=== PATIENT | male | born 1995 | race Caucasian/White ===

== ENCOUNTER 2020-04-30 09:13 | Outpatient (REF) | payer OTHER, SELFPAY ==
[2020-04-30 11:06] LABS: Alanine Aminotransferase 63 U/L (0-40); Albumin Level 4.7 g/dL (3.5-5.0); Alkaline Phosphatase 69 U/L (39-117); Anion Gap 12 (12-20); Aspartate Amino Transferase 52 U/L (5-37); Bilirubin Total 1.8 mg/dL (0.0-1.0); Blood Urea Nitrogen 17 mg/dL (9-16); Calcium 9.6 mg/dL (8.4-10.2); Carbon Dioxide 27 mmol/L (22-29); Chloride 104 mmol/L (96-108); Cholesterol 152 mg/dL; Estimated Glomerular Filt Rate > 60; Glucose Fasting 93 mg/dL (60-99); HDL Cholesterol 47 mg/dL; LDL Cholesterol Calculated 93 mg/dl; Potassium 4.2 mmol/L (3.3-5.1); Sodium 139 mmol/L (135-145); Total Protein 7.5 g/dL (6.5-8.0); Triglycerides 60 mg/dL
[2020-04-30 11:26] LABS: TSH reflex Free T4 1.13 uIU/mL (0.32-4.0)
[2020-04-30 11:28] LABS: HBc Num1 0.14 S/CO (0.00-0.79); HIV AB/AG Nonreactive (Nonreactive); HIV Num 1 0.11 S/CO (0.00-0.99); Hepatitis B Core Antibody Nonreactive (Nonreactive); ~HepC Num1 0.15 S/CO (0.00-0.79); ~Hepatitis C Antibody Nonreactive (Nonreactive)
[2020-04-30 11:39] LABS: HBS Num1 0.56 mIU/mL (0-7.99); HBsAGNum1 0.21 S/CO (0.00-0.99); Hepatitis B Surface Antigen Negative (Negative); ~Hepatitis B Surface Antibody NONREACTIVE (Nonreactive)
[2020-05-01 05:59] LABS: Syphilis Screen Nonreactive (Nonreactive)
[2020-05-01 09:57] LABS: C. trachomatis RNA TMA NOT DETECTED (NOT DETECTED); N. gonorrhoeae RNA TMA NOT DETECTED (NOT DETECTED)
== END 2020-04-30 09:14 | disposition home or self-care (01) ==
LOC: HO.WFDLDS 09:13
PROVIDERS: Visit Provider Family Medicine
DX: Z00.00 Encounter for general adult medical examination without abnormal findings (principal); Z11.3 Encounter for screening for infections with a predominantly sexual mode of transmission; Z11.8 Encounter for screening for other infectious and parasitic diseases; Z11.4 Encounter for screening for human immunodeficiency virus [HIV]; Z11.59 Encounter for screening for other viral diseases; Z13.29 Encounter for screening for other suspected endocrine disorder; Z13.220 Encounter for screening for lipoid disorders
CPT/HCPCS: 36415; 80053; 80061; 84443; 86704; 86706; 86780; 86803; 87340; 87389; 87491; 87591

== ENCOUNTER 2020-06-19 15:12 | Outpatient (REF) | payer OTHER, SELFPAY ==
[2020-06-19 16:54] LABS: Alanine Aminotransferase 29 U/L (0-40); Albumin Level 4.5 g/dL (3.5-5.0); Alkaline Phosphatase 66 U/L (39-117); Anion Gap 16 (12-20); Aspartate Amino Transferase 24 U/L (5-37); Bilirubin Total 2.2 mg/dL (0.0-1.0); Blood Urea Nitrogen 16 mg/dL (9-16); Calcium 9.5 mg/dL (8.4-10.2); Carbon Dioxide 24 mmol/L (22-29); Chloride 105 mmol/L (96-108); Estimated Glomerular Filt Rate > 60; Glucose Random 86 mg/dL (60-115); Potassium 4.3 mmol/L (3.3-5.1); Sodium 141 mmol/L (135-145); Total Protein 7.1 g/dL (6.5-8.0)
[2020-06-20 09:35] LABS: CT PCR NOT DETECTED (Not Detect.); NG PCR NOT DETECTED (Not Detect.)
== END 2020-06-19 15:13 | disposition home or self-care (01) ==
LOC: HO.HMGCLDS 15:12
PROVIDERS: PCP Family Medicine; Visit Provider Family Medicine
DX: Z11.3 Encounter for screening for infections with a predominantly sexual mode of transmission (principal); R74.01 Elevation of levels of liver transaminase levels
CPT/HCPCS: 80053; 87491; 87591

== ENCOUNTER 2020-10-08 11:17 | Outpatient (REF) | payer OTHER, SELFPAY ==
[2020-10-10 09:29] LABS: Lyme Abs Screen POSITIVE
[2020-10-16 15:40] LABS: 18 KD (IgG) Band NON-REACTIVE; 23 KD (IgG) Band NON-REACTIVE; 23 KD (IgM) Band REACTIVE; 28 KD (IgG) Band REACTIVE; 30 KD (IgG) Band NON-REACTIVE; 39 KD (IgM) Band NON-REACTIVE; 41 KD (IgM) Band NON-REACTIVE; 45 KD (IgG) Band NON-REACTIVE; 58 KD (IgG) Band REACTIVE; 66 KD (IgG) Band NON-REACTIVE; 93 KD (IgG) Band NON-REACTIVE; Lyme IgG Blot Interp NEGATIVE (NEGATIVE); Lyme IgM Blot Interp NEGATIVE (NEGATIVE)
== END 2020-10-08 11:18 | disposition home or self-care (01) ==
LOC: HO.WFDLDS 11:17
PROVIDERS: Visit Provider Family Medicine
DX: T14.8XXA Other injury of unspecified body region, initial encounter (principal); W57.XXXA Bitten or stung by nonvenomous insect and other nonvenomous arthropods, initial encounter
CPT/HCPCS: 36415; 86617; 86618

== ENCOUNTER 2021-04-01 14:54 | Outpatient (REF) | payer OTHER, SELFPAY ==
[2021-04-01 19:00] LABS: Influenza A PCR NEGATIVE (Negative); Influenza B PCR NEGATIVE (Negative); Resp Syncy Virus RNA Qual PCR NEGATIVE (Negative); SARS COV2 PCR INHOUSE POSITIVE (Negative)
== END 2021-04-01 14:55 | disposition home or self-care (01) ==
LOC: HO.LAB 14:54
PROVIDERS: Visit Provider Family Medicine
DX: Z20.822 Contact with and (suspected) exposure to COVID-19 (principal); B34.9 Viral infection, unspecified
CPT/HCPCS: 0241U

== ENCOUNTER 2023-05-12 13:01 | Outpatient (AMB) | payer OTHER, SELFPAY ==
--- NOTE | 2023-05-12 13:02 | A.OFFPC_ITS ---
Vital Signs 05/12/23 13:03 Height 5 ft 7 in Weight 193 lb BMI 30.2 BP 130/82 Blood Pressure Location Lt brachial Position Sitting Pulse 78 Pulse Source Pulse Oximeter Pulse Oximetry (%) 96 Oxygen Delivery Method Room Air Intake Visit Reasons: DEB from [facility] Allergies NSAIDS (Non-Steroidal Anti-Inflamma Allergy (Severe, Verified 05/12/23 13:23) chucky emre syndromes ibuprofen Allergy (Intermediate, Verified 05/12/23 13:23) Chucky Emre Syndrome Tobacco use date assessed: 05/12/23 Dental Screening Dental Screen Date: 05/12/23 Did you have a dental visit in the last 12 months?: Yes Did you have a dental problem in the last 6 months where you did not have access to dental care?: No Was dental information given to patient?: Patient has dentist HPI HPI Comments History of Present Illness Details 27-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, ADHD, Lyme disease, elevated LFTs Surgical history includes a left ACL repair x2 at [facility] Health maintenance: Due for flu vaccine Specialists: Orthopedics- none Family history: mom has thyroid disease grandfather with lung cancer > labs 09/2020 [facility] [place] Here today to discuss restarting ADHD meds 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 Only med trialed in the past. In regards to ADHD this helped sx greatly. Current sx include: easily distracted, effecting study habits. Was using marijuana in the past, stopped Using etoh 1-2 times per week. Socially. Denies any issue w/ drinking. requesting STD screening. denies any sx at current time [facility] Surgical History (Updated 05/12/23 @ 13:09 by Jessa Rene MA) History of repair of ACL Family History (Updated 05/12/23 @ 13:10 by Jessa Rene MA) Mother Non Hodgkin's lymphoma Maternal Grandfather Lung cancer Maternal Grandmother Skin cancer Social History (Updated 06/24/20 @ 08:48 by Yaquelin Vázquez CMA) Household Members Other:: Roommate Housing: House Alcohol intake: current Alcohol intake frequency: a few times a week Alcohol type: beer, wine and hard liquor Patient Tobacco Use Status: Never used Tobacco e-Cigarette/Vaping Use: Currently Using Cognitive needs: No Hearing needs: No Vision needs: Yes Questionnaire PHQ-9 Over the last 2 weeks, how often have you been bothered by any of the following problems? 1. Little interest or pleasure in doing things: not at all 2. Feeling down, depressed, or hopeless: not at all 3. Trouble falling or staying asleep, or sleeping too much: not at all 4. Feeling tired or having little energy: not at all 5. Poor appetite or overeating: not at all 6. Feeling bad about yourself - or that you are a failure or have let yourself or your family down: not at all 7. Trouble concentrating on things, such as reading the newspaper or watching television: not at all 8. Moving or speaking so slowly that other people could have noticed. Or the opposite - being so fidgety or restless that you have been moving around a lot more than usual: not at all 9. Thoughts that you would be better off or of hurting yourself in some way: not at all Total score: 0 Depression Screening Interpretation: Negative Depression Screening Done: Yes 58396 - PHQ-9 Billing: Yes Source: Developed by Drs. Francis Keane, Omayra Delatorre, Mart Barber and colleagues, with an educational jason from [employer]. Thrive Questionnaire Date Thrive assessed: 05/12/23 I am a: Patient What is your living situation today?: I have a steady place to live Within the past 12 months, did the food you bought not last and you didn't have the money to get more?: Never true Within the past 12 months, did you worry whether your food would run out before you got money to buy more?: Never true Do you have trouble paying for medicines?: No Do you have trouble getting transportation to medical appointments?: No Do you have trouble paying your heating and electricity bill?: No Do you have trouble taking care of your child, family member or friend?: No Do you have trouble with day-to-day activities such as bathing, preparing meals, shopping, managing finances, etc.?: No Are you currently unemployed and looking for a job?: No Are you interested in more education?: No Please select the resources that you would like help with: None THRIVE Score: 0 AUDIT C Alcohol Use Questionnaire (AUDIT-C) 1. How often do you have a drink containing alcohol?: 2-3 times a week 2. How many drinks containing alcohol do you have on a typical day when you are drinking?: 3 or 4 3. How often do you have six or more drinks on one occasion?: Less than monthly Total Score: 5 Score Reviewed/Action Taken: Yes ALDO-7 AMB Questionnaire ALDO-7 Date ALDO - 7 assessed: 05/12/23 Feeling nervous, anxious, or on edge: 0 = Not at all Not being able to stop or control worryin = Not at all Worrying too much about different things: 0 = Not at all Trouble relaxin = Not at all Being so restless that it is hard to sit still: 0 = Not at all Becoming easily annoyed or irritable: 0 = Not at all Feeling afraid as if something awful might happen: 0 = Not at all Total ALDO-7 score (0-4 normal; 5-9 mild; 10-14 moderate; 15-21 severe): 0 Source: Developed by Drs. Francis Keane, Omayra Delatorre, Mart Barber and colleagues, with an educational jason from [employer]. ALDO-7 Assessment Billing ALDO-7 Assessment Tool: ALDO-7 Assessment 18481 Review of Systems Const All systems reviewed & are unremarkable except as noted in HPI and below Physical exam (Primary Care) Vital Signs: Last Vital Signs Pulse 78 05/12/23 13:03 BP 130/82 05/12/23 13:03 Pulse Ox 96 05/12/23 13:03 Oxygen Delivery Method Room Air 05/12/23 13:03 BMI result Body Mass Index 30.2 Tobacco/Smoking Status: Tobacco use Status Tobacco use date assessed 05/12/23 05/12/23 13:12 Patient Tobacco Use Status Never used Tobacco 05/12/23 13:12 e-Cigarette/Vaping Use Currently Using 05/12/23 13:12 PHQ-9: PHQ-9 Score PHQ-9: Total score 0 05/12/23 13:38 Depression Screening Interpretation: Negative Thrive Assessment: Date of Thrive Assessment Date Thrive assessed 05/12/23 05/12/23 13:12 Const Other: awake alert cooperative MMM RRR LS CTAB Office Procedures Flu Questionnaire Does the patient have a severe egg allergy?: No Does the patient have severe life threatening allergies?: No Does the patient have a fever or illness today?: No Has the patient ever had Guillain-[place] Syndrome?: No Has the patient ever had any past reaction to a flu shot?: No Immunizations flu vacc [id number] 6mos up(PF) 60 mcg(15 mcgx4)/0.5 mL IM syringe Performing Provider: GILLIAN Kerns Performing Location: [facility] Administered by: Iza Mariee CMA on 05/12/23 13:39 Dose Route Admin Location Dispensed Lot Number Expiration Date NDC Rolled Materials Worker 0.5 mL IM Left Deltoid 0.5 mL [id number] 09/26/23 30577-912-13 [employer] VIS Given Date VIS Provided VIS Publication Date 05/12/23 Single Vaccine 20 Eligibility Eligibility Date Funding Source Not [facility] Eligible 05/12/23 Private Assessment and Plan Assessment & Plan (1) Screening for STDs (sexually transmitted diseases): Code(s): Z11.3 - Encounter for screening for infections with a predominantly sexual mode of transmission (2) ADHD: Comment: reviewed pediatric records. plan will be to check labs today and bring him back in 2 weeks to discuss and RX meds. Was on Concerta in past, worked well for ADHD but caused big decrease in appetite. Code(s): F90.9 - Attention-deficit hyperactivity disorder, unspecified type Qualifiers: Attention deficit-hyperactivity disorder type: predominantly inattentive Qualified Code(s): F90.0 - Attention-deficit hyperactivity disorder, predominantly inattentive type Plan This note is constructed using voice recognition software. While every effort has been made to ensure accuracy in library information technician, still errors may have been included Sometimes, these errors may affect the content or meaning of the given sentence . Total time spent caring for the patient today was 45 minutes. This includes time spent before the visit reviewing the chart, time spent during the visit, and time spent after the visit on documentation Orders: Orders Hepatitis B Surface Antigen Today Z11.3 - Encounter for screening for infections with a predominantly sexual mode of transmission Hepatitis C Antibody Today Z11.3 - Encounter for screening for infections with a predominantly sexual mode of transmission CT NG by PCR Today Z11.3 - Encounter for screening for infections with a predominantly sexual mode of transmission Microalbumin, Random (w Creat) Today F90.9 - Attention-deficit hyperactivity disorder, unspecified type, Z11.3 - Encounter for screening for infections with a predominantly sexual mode of transmission Comprehensive Met. Panel Today F90.9 - Attention-deficit hyperactivity disorder, unspecified type, Z11.3 - Encounter for screening for infections with a predominantly sexual mode of transmission LDL Cholesterol Direct Today F90.9 - Attention-deficit hyperactivity disorder, unspecified type, Z11.3 - Encounter for screening for infections with a predominantly sexual mode of transmission HIV Ab/Ag Today Z11.3 - Encounter for screening for infections with a predominantly sexual mode of transmission Syphilis Screen Today Z11.3 - Encounter for screening for infections with a predominantly sexual mode of transmission Herpes Simplex Virus Ab IgG Today Z11.3 - Encounter for screening for infections with a predominantly sexual mode of transmission TSH reflex Free T4 Today F90.9 - Attention-deficit hyperactivity disorder, unspecified type, Z11.3 - Encounter for screening for infections with a predominantly sexual mode of transmission Influenza [id number] Immunization Today Z23 - Encounter for immunization Coding Level of Care Code Est Pt Level 5 (76747) Diagnoses Screening for STDs (sexually transmitted diseases) Z11.3 Attention deficit hyperactivity disorder (ADHD), predominantly inattentive type F90.0 Attention deficit-hyperactivity disorder type: predominantly inattentive Additional Codes ALDO-7 Assessment Billing - ALDO-7 Assessment Tool: ALDO-7 Assessment 58365 ([id number])
[2023-05-12 13:03] VITALS: BP 130/82; PULSE 78; O2SAT 96; BMI 30.2
== END 2023-05-12 13:55 | disposition home or self-care (01) ==
PROVIDERS: PCP Family Medicine; Visit Provider Nurse Practitioner Family
DX: F90.0 Attention-deficit hyperactivity disorder, predominantly inattentive type (principal); Z11.3 Encounter for screening for infections with a predominantly sexual mode of transmission; Z23 Encounter for immunization
CPT/HCPCS: 90471; 90686; 99215

== ENCOUNTER 2023-05-13 08:08 | Outpatient (REF) | payer OTHER, SELFPAY ==
[2023-05-13 12:14] LABS: Alanine Aminotransferase 73 U/L (0-40); Albumin Level 4.4 g/dL (3.5-5.0); Alkaline Phosphatase 65 U/L (39-117); Anion Gap 9 (12-20); Aspartate Amino Transferase 31 U/L (5-37); Bilirubin Total 1.3 mg/dL (0.0-1.0); Blood Urea Nitrogen 16 mg/dL (9-16); Calcium 9.6 mg/dL (8.4-10.2); Carbon Dioxide 27 mmol/L (22-29); Chloride 108 mmol/L (96-108); Estimated Glomerular Filt Rate > 60; Glucose Random 92 mg/dL (60-115); Potassium 4.1 mmol/L (3.3-5.1); Sodium 140 mmol/L (135-145); Total Protein 7.4 g/dL (6.5-8.0)
[2023-05-13 12:16] LABS: TSH reflex Free T4 1.94 uIU/mL (0.32-4.0)
[2023-05-13 12:19] LABS: Microalbum/Creatinine Ratio Ur 21.1 ug/mg cr (<30)
[2023-05-13 12:34] LABS: HIV AB/AG Nonreactive (Nonreactive); HIV Num 1 0.07 S/CO (0.00-0.99); Hepatitis B Surface Antigen Negative (Negative); Syphilis Screen Nonreactive (Nonreactive); ~HepC Num1 0.11 S/CO (0.00-0.79); ~Hepatitis C Antibody Nonreactive (Nonreactive)
[2023-05-14 09:14] LABS: Herpes Simplex Type 2 IgG <0.90 index
[2023-05-14 13:48] LABS: LDL Cholesterol Direct 114 mg/dL (<100)
== END 2023-05-13 08:09 | disposition home or self-care (01) ==
LOC: HO.WFDLDS 08:08
PROVIDERS: Visit Provider Nurse Practitioner Family
DX: F90.9 Attention-deficit hyperactivity disorder, unspecified type (principal); Z11.3 Encounter for screening for infections with a predominantly sexual mode of transmission
CPT/HCPCS: 36415; 80053; 82043; 82570; 83721; 84443; 86695; 86696; 86780; 86803; 87340; 87389

== ENCOUNTER 2023-05-26 08:20 | Outpatient (AMB) | payer OTHER, SELFPAY ==
[2023-05-26 08:22] VITALS: BP 100/70; PULSE 64; RESP 13; TEMP 36.3; O2SAT 99; BMI 29.5
--- NOTE | 2023-05-26 08:22 | A.OFFPC_ITS ---
Vital Signs 05/26/23 08:22 Height 5 ft 7 in Weight 188 lb 8 oz BMI 29.5 BP 100/70 Blood Pressure Location Rt brachial Position Sitting Respiration 13 Pulse 64 Pulse Source Pulse Oximeter Temp 97.4 F Temp Source Temporal Artery Scan Pulse Oximetry (%) 99 Oxygen Delivery Method Room Air Intake Visit Reasons: CPE/lab fu/ADHD med start Food Mixer Required: No Accompanied by: Self / Same As Patient Allergies NSAIDS (Non-Steroidal Anti-Inflamma Allergy (Severe, Verified 05/26/23 08:26) chucky emre syndromes ibuprofen Allergy (Intermediate, Verified 05/26/23 08:26) Chucky Emre Syndrome Tobacco use date assessed: 05/12/23 Dental Screening Dental Screen Date: 05/26/23 Did you have a dental visit in the last 12 months?: No Did you have a dental problem in the last 6 months where you did not have access to dental care?: No Was dental information given to patient?: Patient has dentist HPI HPI Comments History of Present Illness Details 27-year-old male with Chucky Emre syn drome, ADHD, Lyme disease, elevated LFTs Surgical history includes a [facility]2 at [facility] Health maintenance: Specialists: Orthopedics Family history: mom has thyroid disease grandfather with lung cancer Here today to follow-up on his lab results and to discuss starting ADHD medications Lab results from 05/17/2023 with clinical significant value reviewed: Bilirubin elevated at 1.3, normal AST 31, elevated ALT 73 herpes simplex virus 1 IgA antibody elevated 29.9 In regards to the herpes simplex patient denies any current or past notable lesions orally or on his genitals. In regards to the elevated LFTs. He denies excessive use of Tylenol. Admits drinking but denies heavy use. He denies use of performance enhancing drugs, testosterone. He denies any abdominal pain, nausea, vomiting, abnormal stools or elimination patterns. In regards to his ADHD those symptoms continue to be present. 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 How often do you have a drink containing alcohol?: 2-3 times a week 2. How many drinks containing alcohol do you have on a typical day when you are drinking?: 5 or 6 3. How often do you have six or more drinks on one occasion?: Monthly Total Score: 7 ALDO-7 AMB Questionnaire ALDO-7 Date ALDO - 7 assessed: 05/12/23 Source: Developed by Drs. Francis Keane, Omayra Delatorre, Mart Barber and colleagues, with an educational jason from [employer]. Review of Systems Const All systems reviewed & are unremarkable except as noted in HPI and below Physical exam (Primary Care) Vital Signs: Last Vital Signs Temp 97.4 F 05/26/23 08:22 Pulse 64 05/26/23 08:22 Resp 13 05/26/23 08:22 BP 100/70 05/26/23 08:22 Pulse Ox 99 05/26/23 08:22 Oxygen Delivery Method Room Air 05/26/23 08:22 BMI result Body Mass Index 29.5 Tobacco/Smoking Status: Tobacco use Status Tobacco use date assessed 05/12/23 05/26/23 08:29 Patient Tobacco Use Status Never used Tobacco 05/26/23 08:29 e-Cigarette/Vaping Use Former Use 05/26/23 08:29 Thrive Assessment: Date of Thrive Assessment Date Thrive assessed 05/12/23 05/26/23 08:29 Const Other: awake alert cooperative Sclera is nonicteric bilat MMM RRR LS CTAB Abdomen soft, liver edge palpable, nontender Assessment and Plan Assessment & Plan (1) Elevated transaminase level: Comment: Hepatitis profile negative. We will check abdominal ultrasound complete to include elastography. We will discuss with patient's once results are available. 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 Safe sex encouraged. Code(s): B00.9 - Herpesviral infection, unspecified (3) ADHD: Comment: Was on Concerta in past, worked well for ADHD but caused big decrease in appetite. Given his abnormal liver enzymes the decision was made to hold off on starting any medications at this time. After the ultrasound of the abdomen is complete in the results were reviewed with him a discussion can be had about starting medications. Code(s): F90.9 - Attention-deficit hyperactivity disorder, unspecified type Qualifiers: Attention deficit-hyperactivity disorder type: predominantly inattentive Qualified Code(s): F90.0 - Attention-deficit hyperactivity disorder, predominantly inattentive type Plan: This note is constructed using voice recognition software. While every effort has been made to ensure accuracy in ct scan special procedures technologist, still errors may have been included Sometimes, these errors may affect the content or meaning of the given sentence . Total time spent caring for the patient today was 30 minutes. 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
== END 2023-05-26 08:53 | disposition home or self-care (01) ==
PROVIDERS: PCP Family Medicine; Visit Provider Nurse Practitioner Family
DX: R74.01 Elevation of levels of liver transaminase levels (principal); B00.9 Herpesviral infection, unspecified; F90.0 Attention-deficit hyperactivity disorder, predominantly inattentive type
CPT/HCPCS: 99214

== ENCOUNTER 2024-01-26 10:39 | Outpatient (AMB) | payer BC, SELFPAY ==
--- NOTE | 2024-01-26 08:12 | A.OFFPC_ITS ---
Vital Signs 01/26/24 10:43 Height 5 ft 7 in Weight 194 lb 2 oz BMI 30.4 BP 112/68 Blood Pressure Location Rt brachial Position Sitting Respiration 13 Pulse 59 Pulse Source Pulse Oximeter Pulse Oximetry (%) 98 Oxygen Delivery Method Room Air Intake Visit Reasons: ADHD med f/u Intake Note: follow up on meds Allergies NSAIDS (Non-Steroidal Anti-Inflamma Allergy (Severe, Verified 01/26/24 10:43) chucky emre syndromes ibuprofen Allergy (Intermediate, Verified 01/26/24 10:43) Chucky Emre Syndrome Medication List - Last Reconciled 01/26/24 by EDMOND Kerns- No Known Home Meds Tobacco use date assessed: 05/12/23 Dental Screening Dental Screen Date: 05/26/23 HPI HPI Comments History of Present Illness Details 28-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, ADHD, Lyme disease, elevated LFTs, HSV 1, obesity Surgical history includes a left ACL repair x2 at [facility] Family history: mom has thyroid disease grandfather with lung cancer Health maintenance: Flu 01/26/24 Specialists: Orthopedics Here today to discuss starting on medications to help his ADHD. We initially started this workup however he fell out of care. His initial workup did include findings of elevated LFTs and HSV 1. He was previously on Concerta however this caused decreased appetite and weight loss. He has not been on meds and sometimes. Overall his mood is stable. Sleep is disrupted as he was recently moved back in with his father. He was still working on getting his proposal development manager and needs to complete the final exam. In regards to abdominal symptoms he denies any abdominal pain, nausea, vomiting, changes in bowel habits. Reviews any use of supplements or elvo-czq-tcpzbil medications. Ultrasound of his liver was ordered with elastography however he did not complete this. He needs and accommodation letter for his testing. Paperwork presented to me today. Needs his flu shot Exam: awake alert cooperative Sclera is nonicteric bilat MMM RRR LS CTAB Abdomen soft, liver edge palpable, nontender Mood and affect appropriate Plan Letter written for him w/ the request for: extra time, alternate testing site such as private room if available limit distractions, recommend movement breaks every 30 minutes until testing complete. Paperwork completed and left at front end java developer for garbage pick up worker Repeat LFTS today Consider US if labs cont to be abnormal Plan to r/s Concerta after review of repeat labs. Contract reviewed and signed today. RTO 3-4 weeks to f/u on labs and meds. At the close of this note, no labs are resulted. I will review once in and prescribe Concerta if able. Patient is aware they are being prescribed a controlled substance. They were educated that this medication does require routine monthly office visits to monitor weight, blood pressure, heart rate and to screen for any signs of abuse or misuse. They were educated that they may be subject to random pill counts and/or U tox screenings. The prescription drug monitoring program we will be monitored at each visit to further screen for signs of abuse or misuse to include filling prescriptions at other physician's offices. The patient should maintain prescription refills of the same local pharmacy and advised the provider of any changes immediately. If at any time there is a concern for abuse or misuse or if there are any signs of side effects such as elevated blood pressure, elevated heart rate or weight loss patient is made aware that this medication will be discontinued. The patient is aware of the above and is willing to proceed. This note is constructed using voice recognition software. While every effort has been made to ensure accuracy in rotary rock drilling machine operator, still errors may have been included Sometimes, these errors may affect the content or meaning of the given sentence . Total time spent caring for the patient today was 30 minutes. This includes time spent before the visit reviewing the chart, time spent during the visit, and time spent after the visit on documentation [facility] Medical History History of COVID-19 Surgical History History of repair of ACL Family History Mother Non Hodgkin's lymphoma Maternal Grandfather Lung cancer Maternal Grandmother Skin cancer Other Mental health disorder Substance abuse Social History Household Members Other:: Roommate Housing: House Alcohol intake: current Alcohol intake frequency: a few times a week Alcohol type: beer, wine and hard liquor Patient Tobacco Use Status: Never used Tobacco e-Cigarette/Vaping Use: Former Use service: No Current occupational status: employed 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 Francis Keane, Omayra Delatorre, Mart Barber and colleagues, with an educational jason from [employer]. Physical exam (Primary Care) Vital Signs: Last Vital Signs Pulse 59 01/26/24 10:43 Resp 13 01/26/24 10:43 BP 112/68 01/26/24 10:43 Pulse Ox 98 01/26/24 10:43 Oxygen Delivery Method Room Air 01/26/24 10:43 BMI result Body Mass Index 30.4 Tobacco/Smoking Status: Tobacco use Status Tobacco use date assessed 05/12/23 01/26/24 08:12 Patient Tobacco Use Status Never used Tobacco 01/26/24 08:12 e-Cigarette/Vaping Use Former Use 01/26/24 08:12 Thrive Assessment: Date of Thrive Assessment Date Thrive assessed 05/12/23 01/26/24 08:12 Office Procedures Flu Questionnaire Does the patient have a severe egg allergy?: No Does the patient have severe life threatening allergies?: No Does the patient have a fever or illness today?: No Has the patient ever had Guillain-[place] Syndrome?: No Has the patient ever had any past reaction to a flu shot?: No Immunizations Fluarix Triv [id number] (PF) 45 mcg (15 mcg x 3)/0.5 mL IM syringe Performing Provider: ANGELA Kerns Performing Location: [facility] [place] [facility] Administered by: Angelina Muller RN on 01/26/24 11:27 Dose Route Admin Location Dispensed Lot Number Expiration Date [facility] Programming Development Project Manager 0.5 mL IM Left Deltoid 0.5 mL [id number] 09/25/24 [id number] [employer] VIS Given Date VIS Provided VIS Publication Date 01/26/24 Single Vaccine 20 Eligibility Eligibility Date Funding Source Not [facility] Eligible 01/26/24 Private Coding Level of Care Code Est Pt Level 4 (73565) Complex EM visit Add On G2211 Diagnoses Elevated transaminase level R74.01 Attention deficit hyperactivity disorder (ADHD), predominantly inattentive type F90.0 Attention deficit-hyperactivity disorder type: predominantly inattentive Assessment & Plan Assessment & Plan (1) Elevated transaminase level: Comment: Hepatitis profile negative. abdominal ultrasound complete to include elastography. Code(s): R74.01 - Elevation of levels of liver transaminase levels Category: Medical (2) ADHD: Comment: Was on Concerta in past, worked well for ADHD but caused big decrease in appetite. Code(s): F90.9 - Attention-deficit hyperactivity disorder, unspecified type Category: Medical Qualifiers: Attention deficit-hyperactivity disorder type: predominantly inattentive Qualified Code(s): F90.0 - Attention-deficit hyperactivity disorder, predominantly inattentive type Plan: . Plan . Orders: Orders Comprehensive Met. Panel Today R74.01 - Elevation of levels of liver transaminase levels Influenza [id number] Immunization Today Z23 - Encounter for immunization
[2024-01-26 10:43] VITALS: BP 112/68; PULSE 59; RESP 13; O2SAT 98; BMI 30.4
== END 2024-01-26 11:25 | disposition home or self-care (01) ==
LOC: HO.HMCFM 10:40
PROVIDERS: PCP Nurse Practitioner Family; Visit Provider Nurse Practitioner Family
DX: R74.01 Elevation of levels of liver transaminase levels (principal); F90.0 Attention-deficit hyperactivity disorder, predominantly inattentive type; Z23 Encounter for immunization

== ENCOUNTER → 2024-01-26 10:39 | Outpatient (BNVA) | payer BC, SELFPAY | PROVIDERS: PCP Nurse Practitioner Family; Visit Provider Nurse Practitioner Family | DX: R74.01 Elevation of levels of liver transaminase levels (principal); F90.0 Attention-deficit hyperactivity disorder, predominantly inattentive type; Z23 Encounter for immunization | CPT/HCPCS: 90471; 90656 ==

== ENCOUNTER 2024-01-26 11:30 | Outpatient (REF) | payer BC, SELFPAY ==
[2024-01-26 15:08] LABS: Albumin Level 4.4 g/dL (3.5-5.0); Alkaline Phosphatase 68 U/L (39-117); Anion Gap 13 (12-20); Aspartate Amino Transferase 35 U/L (5-37); Bilirubin Total 0.9 mg/dL (0.0-1.0); Blood Urea Nitrogen 16 mg/dL (9-16); Calcium 9.3 mg/dL (8.4-10.2); Carbon Dioxide 29 mmol/L (22-29); Chloride 106 mmol/L (96-108); Estimated Glomerular Filt Rate > 60; Glucose Random 93 mg/dL (60-115); Potassium 4.6 mmol/L (3.3-5.1); Sodium 143 mmol/L (135-145); Total Protein 7.6 g/dL (6.5-8.0)
[2024-01-26 15:19] LABS: Alanine Aminotransferase 56 U/L (0-40)
== END 2024-01-26 11:31 | disposition home or self-care (01) ==
LOC: HO.WFDLDS 11:30
PROVIDERS: Visit Provider Nurse Practitioner Family
DX: R74.01 Elevation of levels of liver transaminase levels (principal)
CPT/HCPCS: 36415; 80053

== ENCOUNTER 2024-02-16 09:33 | Outpatient (AMB) | payer BC, SELFPAY ==
--- NOTE | 2024-02-16 09:58 | A.OFFPC_ITS ---
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: No Allergies NSAIDS (Non-Steroidal Anti-Inflamma Allergy (Severe, Verified 02/16/24 10:20) chucky emre syndromes ibuprofen Allergy (Intermediate, Verified 02/16/24 10:20) Chucky Emre Syndrome Medication List - Last Reconciled 02/16/24 by ANGELA Kerns methylphenidate HCl ER 18 mg PO DAILY Tobacco use date assessed: 02/16/24 Dental Screening Dental Screen Date: 02/16/24 Did you have a dental visit in the last 12 months?: Yes Did you have a dental problem in the last 6 months where you did not have access to dental care?: No Was dental information given to patient?: Patient has dentist HPI HPI Comments History of Present Illness Details History of Present Illness The patient is a 28-year-old male presenting with ADHD. 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 He reports a significant improvement in focus, sustained energy levels, and task completion compared to periods when he does not take medication. However, the effects last approximately two to three hours before diminishing. The patient has experienced a similar impact on appetite as noted during adolescence, with a tendency to skip breakfast and lunch, resulting in weight fluctuations. Previous weights reported include 188 lb, 194 lb, and a current weight of 187 lb. Despite losing a few pounds, the patient is not concerned but acknowledges the importance of maintaining stable weight. No significant adverse events have been reported, with the patient denying symptoms of tachycardia or heightened anxiety. Discussion around medication dosing was initiated, attributing the short duration of effect possibly to inconsistent daily intake. Social History - Education: Currently studying for exam s, indicating recent academic engagement . Review of Systems - Nutrition: Tends to skip breakfast and lunch, mostly consuming dinner. Attempts to force eating due to past experiences with medication. - Weight Management: Recent weight fluct uations noted, but currently stable at 187 lb, which the patient finds acceptable. - Psychiatric: Denies racing heart, anxi ety. - General: Reports appetite fluctuations . Physical Exam Awake alert NAD RRR LS CTAB Mood and affect appropriate Patient was informed and verbally consented to the use of an ambient scribe for clinic note documentation during this visit. Discussion Notes I discussed with the patient the potential benefit of increasing the Concerta dosage to 36 mg to alleviate the issue of short-lived efficacy and reinforce the effects throughout the day. We reviewed the importance of observing for any increase in adverse effects with the higher dose. The likelihood of improved focus with consistent daily medication was also communicated. I reinforced monitoring weight and appetite closely, stressing the anorexic potential of stimulant medications. The patient expressed understanding and agreed with the proposed modifications. I advised notifying me if any side effects or concerns arise before the scheduled follow-up in four weeks. Patient Instructions - Increase Concerta dose to 36 mg once d aily as prescribed. Ok to take 2 of the 18mg. Pill count done today #17. New RX for 36 mg sent. - Monitor your appetite and weight, ensu ring regular meals. - Report any adverse effects or changes in symptoms. - Review progress at the next appointmen t in four weeks, or contact earlier if needed. Total time spent caring for the patient today was 20 minutes. This includes time spent before the visit reviewing the chart, time spent during the visit, and time spent after the visit on documentation REPLACED BY [facility] Medical History History of COVID-19 Surgical History History of repair of ACL Family History Mother Non Hodgkin's lymphoma Maternal Grandfather Lung cancer Maternal Grandmother Skin cancer Other Mental health disorder Substance abuse Social History Household Members Other:: Roommate Housing: House Alcohol intake: current Alcohol intake frequency: a few times a week Alcohol type: beer, wine and hard liquor Patient Tobacco Use Status: Never used Tobacco e-Cigarette/Vaping Use: Former Use service: No Current occupational status: employed 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 1. Little interest or pleasure in doing things: not at all 2. Feeling down, depressed, or hopeless: not at all 3. Trouble falling or staying asleep, or sleeping too much: not at all 4. Feeling tired or having little energy: not at all 5. Poor appetite or overeating: several days 6. Feeling bad about yourself - or that you are a failure or have let yourself or your family down: not at all 7. Trouble concentrating on things, such as reading the newspaper or watching television: not at all 8. Moving or speaking so slowly that other people could have noticed. Or the opposite - being so fidgety or restless that you have been moving around a lot more than usual: not at all 9. Thoughts that you would be better off or of hurting yourself in some way: not at all Total score: 1 56445 - PHQ-9 Billing: Yes Source: Developed by Drs. Francis Keane, Omayra Delatorre, Mart Barber and colleagues, with an educational jason from [employer]. Thrive Questionnaire Date Thrive assessed: 01/26/24 I am a: Patient What is your living situation today?: I have a steady place to live Within the past 12 months, did the food you bought not last and you didn't have the money to get more?: Never true Within the past 12 months, did you worry whether your food would run out before you got money to buy more?: Never true Do you have trouble paying for medicines?: No Do you have trouble getting transportation to medical appointments?: No Do you have trouble paying your heating and electricity bill?: No Do you have trouble taking care of your child, family member or friend?: No Do you have trouble with day-to-day activities such as bathing, preparing meals, shopping, managing finances, etc.?: No Are you currently unemployed and looking for a job?: No Are you interested in more education?: No Please select the resources that you would like help with: None Currently or been in a relationship where the following occur: No concerns reported THRIVE Score: 0 AUDIT C Alcohol Use Questionnaire (AUDIT-C) 1. How often do you have a drink containing alcohol?: 2-3 times a week 2. How many drinks containing alcohol do you have on a typical day when you are drinking?: 3 or 4 3. How often do you have six or more drinks on one occasion?: Less than monthly Total Score: 5 ALDO-7 AMB Questionnaire ALDO-7 Date ALDO - 7 assessed: 02/16/24 Feeling nervous, anxious, or on edge: 0 = Not at all Not being able to stop or control worryin = Not at all Worrying too much about different things: 1 = Several days Trouble relaxin = Not at all Being so restless that it is hard to sit still: 1 = Several days Becoming easily annoyed or irritable: 1 = Several days Feeling afraid as if something awful might happen: 0 = Not at all Total ALDO-7 score (0-4 normal; 5-9 mild; 10-14 moderate; 15-21 severe): 3 Source: Developed by Drs. Francis Keane, Omayra Delatorre, Mart Barber and colleagues, with an educational jason from [employer]. ALDO-7 Assessment Billing ALDO-7 Assessment Tool: ALDO-7 Assessment 24707 Physical exam (Primary Care) Vital Signs: Last Vital Signs Temp 98.1 F 02/16/24 10:04 Pulse 122 H 02/16/24 10:04 Resp 16 02/16/24 10:04 BP 112/65 02/16/24 10:04 Pulse Ox 97 02/16/24 10:04 Oxygen Delivery Method Room Air 02/16/24 10:04 BMI result Body Mass Index 29.3 Tobacco/Smoking Status: Tobacco use Status Tobacco use date assessed 02/16/24 02/16/24 10:06 Patient Tobacco Use Status Never used Tobacco 02/16/24 10:00 e-Cigarette/Vaping Use Former Use 02/16/24 10:00 PHQ-9: PHQ-9 Score PHQ-9: Total score 1 02/16/24 10:26 Thrive Assessment: Date of Thrive Assessment Date Thrive assessed 01/26/24 02/16/24 10:00 Currently or been in a relationship where the following occur: No concerns reported Coding Level of Care Code Est Pt Level 3 (23837) Complex EM visit Add On G2211 Diagnoses Attention deficit hyperactivity disorder (ADHD), predominantly inattentive type F90.0 Attention deficit-hyperactivity disorder type: predominantly inattentive Additional Codes ALDO-7 Assessment Billing - ALDO-7 Assessment Tool: ALDO-7 Assessment 21985 ([id number]) PHQ-9 - 39662 - PHQ-9 Billing: Yes ([id number]) Assessment & Plan Assessment & Plan (1) ADHD: Comment: Was on Concerta in past, worked well for ADHD but caused big decrease in appetite. Code(s): F90.9 - Attention-deficit hyperactivity disorder, unspecified type Category: Medical Qualifiers: Attention deficit-hyperactivity disorder type: predominantly inattentive Qualified Code(s): F90.0 - Attention-deficit hyperactivity disorder, predominantly inattentive type Plan: . Plan . Medications: New methylphenidate HCl ER Partial Fill upon patient request. 36 mg PO DAILY 30 tabs 0RF Discontinued methylphenidate HCl ER Partial Fill upon patient request. Discontinued Reason: Doctor's Order 18 mg PO DAILY 30 tabs 0RF
[2024-02-16 10:04] VITALS: BP 112/65; PULSE 122; RESP 16; TEMP 36.7; O2SAT 97; BMI 29.3
== END 2024-02-16 10:26 | disposition home or self-care (01) ==
PROVIDERS: PCP Nurse Practitioner Family; Visit Provider Nurse Practitioner Family
DX: F90.0 Attention-deficit hyperactivity disorder, predominantly inattentive type (principal)

== ENCOUNTER → 2024-02-16 09:33 | Outpatient (BNVA) | payer BC, SELFPAY | PROVIDERS: PCP Nurse Practitioner Family; Visit Provider Nurse Practitioner Family | DX: F90.0 Attention-deficit hyperactivity disorder, predominantly inattentive type (principal) | CPT/HCPCS: 96127 ==

== ENCOUNTER 2024-03-27 09:45 | Outpatient (AMB) | payer BC, SELFPAY ==
--- NOTE | 2024-03-27 09:58 | MHC.PC.OV ---
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: No Allergies NSAIDS (Non-Steroidal Anti-Inflamma Allergy (Severe, Verified 03/27/24 10:14) chucky emre syndromes ibuprofen Allergy (Intermediate, Verified 03/27/24 10:14) Chucky Emre Syndrome Medication List - Last Reconciled 03/27/24 by Ginger Bravo, INTELLIGENCE OFFICER BASIC- methylphenidate HCl ER 36 mg PO DAILY Tobacco use date assessed: 02/16/24 Dental Screening Dental Screen Date: 02/16/24 HPI HPI Comments History of Present Illness Details 28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 He is currently prescribed Concerta 36 mg, which was increased from a prior dosage during his last visit. The patient had a surgical procedure for an anterior cruciate ligament (ACL) and meniscus tear on March 06. Prior to surgery, he ceased taking his ADHD medication due to concerns about its interaction with postoperative medication. Post-surgery, he did not resume taking Concerta as he wanted to evaluate his recovery progress before restarting. He has been off all pain medications, including oxycodone and Tylenol, post-surgery. He found the 36 mg dose effective in helping maintain focus over extended periods when he was on it. Weight monitoring with noted reduction from 188 lbs to 184 lbs, accounted for due to recent surgery. - Activity Level: Recently progressed to walking without crutches. - Nutrition: Reported increased appetite and frequent ordering of food since recovering from surgery. Review of Systems - General: Denies anxiety. Cards: denies palpitations - Mood: Reports mild sleeplessness attributed to irregular sleep post-surgery recovery. Results: Pill count today #19 filled 02/16/24 Physical Exam Awake alert NAD RRR LS CTAB Mood and affect appropriate Plan - Prescribe Concerta 36 mg with the anticipated refill date of April 12, ensuring adequate supply - Monitor your appetite and weight, ensuring regular meals. - Arrange for a follow-up appointment to continue monitoring ADHD medication effectiveness and adjust if necessary. - Schedule next visit in April for annual physical including medication review. Patient was informed and verbally consented to the use of an ambient scribe for clinic note documentation during this visit. RTO Apr CPE/Med check, sooner PRN This note is constructed using voice recognition software. While every effort has been made to ensure accuracy in hand ii thermal cutter, still errors may have been included Sometimes, these errors may affect the content or meaning of the given sentence . Total time spent caring for the patient today was 30 minutes. This includes time spent before the visit reviewing the chart, time spent during the visit, and time spent after the visit on documentation [facility] Medical History History of COVID-19 Surgical History History of repair of ACL Family History Mother Non Hodgkin's lymphoma Maternal Grandfather Lung cancer Maternal Grandmother Skin cancer Other Mental health disorder Substance abuse Social History Household Members Other:: Roommate Housing: House Alcohol intake: current Alcohol intake frequency: a few times a week Alcohol type: beer, wine and hard liquor Patient Tobacco Use Status: Never used Tobacco e-Cigarette/Vaping Use: Former Use service: No Current occupational status: employed 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 13159 - PHQ-9 Billing: Patient declined-do not bill Source: Developed by Drs. Francis Keane, Omayra Delatorre, Mart Barber and colleagues, with an educational jason from [employer]. Thrive Questionnaire Date Thrive assessed: 03/27/24 I am a: Patient What is your living situation today?: I have a steady place to live Within the past 12 months, did the food you bought not last and you didn't have the money to get more?: Never true Within the past 12 months, did you worry whether your food would run out before you got money to buy more?: Never true Do you have trouble paying for medicines?: No Do you have trouble getting transportation to medical appointments?: No Do you have trouble paying your heating and electricity bill?: No Do you have trouble taking care of your child, family member or friend?: No Do you have trouble with day-to-day activities such as bathing, preparing meals, shopping, managing finances, etc.?: No Are you currently unemployed and looking for a job?: No Are you interested in more education?: No Please select the resources that you would like help with: None Currently or been in a relationship where the following occur: No concerns reported THRIVE Score: 0 ALDO-7 AMB Questionnaire ALDO-7 Date ALDO - 7 assessed: 02/16/24 Source: Developed by Drs. Francis Keane, Omayra Delatorre, Mart Barber and colleagues, with an educational jason from [employer]. Physical exam (Primary Care) Vital Signs: Last Vital Signs Pulse 72 03/27/24 10:02 Resp 13 03/27/24 10:02 BP 122/72 03/27/24 10:02 Pulse Ox 98 03/27/24 10:02 Oxygen Delivery Method Room Air 03/27/24 10:02 BMI result Body Mass Index 28.9 Tobacco/Smoking Status: Tobacco use Status Tobacco use date assessed 02/16/24 03/27/24 10:03 Patient Tobacco Use Status Never used Tobacco 03/27/24 10:03 e-Cigarette/Vaping Use Former Use 03/27/24 10:03 Thrive Assessment: Date of Thrive Assessment Date Thrive assessed 03/27/24 03/27/24 10:03 Currently or been in a relationship where the following occur: No concerns reported Coding Level of Care Code Est Pt Level 4 (88087) Complex EM visit Add On G2211 Diagnoses Attention deficit hyperactivity disorder (ADHD), predominantly inattentive type F90.0 Attention deficit-hyperactivity disorder type: predominantly inattentive History of repair of anterior cruciate ligament of left knee Z98.890 Assessment & Plan Assessment & Plan (1) ADHD: Comment: Was on Concerta in past, worked well for ADHD but caused big decrease in appetite. Code(s): F90.9 - Attention-deficit hyperactivity disorder, unspecified type Category: Medical Qualifiers: Attention deficit-hyperactivity disorder type: predominantly inattentive Qualified Code(s): F90.0 - Attention-deficit hyperactivity disorder, predominantly inattentive type (2) History of repair of anterior cruciate ligament of left knee: Code(s): Z98.890 - Other specified postprocedural states Category: Medical Plan . Medications: Refilled methylphenidate HCl ER Partial Fill upon patient request. 36 mg PO DAILY 30 tabs 0RF
[2024-03-27 10:02] VITALS: BP 122/72; PULSE 72; RESP 13; O2SAT 98; BMI 28.9
== END 2024-03-27 10:23 | disposition home or self-care (01) ==
PROVIDERS: PCP Nurse Practitioner Family; Visit Provider Nurse Practitioner Family
DX: F90.0 Attention-deficit hyperactivity disorder, predominantly inattentive type (principal); Z98.890 Other specified postprocedural states

== ENCOUNTER 2024-05-10 10:39 | Outpatient (AMB) | payer BC, SELFPAY ==
--- NOTE | 2024-05-10 10:41 | A.OFFPC_ITS ---
Vital Signs 05/10/24 10:43 Height 5 ft 7 in Weight 186 lb BMI 29.1 BP 118/72 Blood Pressure Location Lt brachial Position Sitting Pulse 68 Pulse Source Pulse Oximeter Temp 98.2 F Temp Source Oral Pulse Oximetry (%) 98 Oxygen Delivery Method Room Air Intake Visit Reasons: CPE/Med check Intake Note: pt is here for PE Allergies NSAIDS (Non-Steroidal Anti-Inflamma Allergy (Severe, Verified 05/10/24 10:57) chucky emre syndromes ibuprofen Allergy (Intermediate, Verified 05/10/24 10:57) Chucky Emre Syndrome Medication List - Last Reconciled 05/10/24 by Ginger Bravo, [facility]- methylphenidate HCl ER 36 mg PO DAILY Tobacco use date assessed: 05/10/24 Dental Screening Dental Screen Date: 05/10/24 Did you have a dental visit in the last 12 months?: Yes Did you have a dental problem in the last 6 months where you did not have access to dental care?: No Was dental information given to patient?: Patient has dentist HPI HPI Comments History of Present Illness Details 28-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 ca (age 64) Health maintenance: Flu 01/26/24 Td 2017 Specialists: Orthopedics Here today for CPE s/p L ACL tear, still in PT, still out of work, out of brace. Managing ADHD well controlled on Concerta. Appetite and wt stable. Mood stable. Sleeping well. Med count today #19 filled 04/27/24 - Last flu shot administered in December 2023 - Tetanus booster received in 2017; up-t o-date for 10-year vaccination schedule - Discussion about getting labs drawn fo r liver profile and cholesterol - Review of vision status; no corrective lenses in use due to personal comfort despite recommendations - Discussion of potential for future pro state screening due to family history Social History - Education: Currently studying and prep aring for an upcoming test by the end of May - Family: Lives with father; no issues w ith family planning mentioned - Exercise: Currently undergoing physica l therapy; not back to work yet after ACL surgery - Medication Use: Adheres consistently t o ADHD medication regimen - Sleep: Routine affected by social acti vities; recent night without sleep due to remi - Nutrition: Consumes approximately two meals per day; appetite stable Physical Exam General: Well developed, well nourished, in no acute distress. Appears stated age. Head: Normocephalic, atraumatic. Eyes: Pupils are equal, round and reactive to light and accommodation. Conjunctivae are clear. Vision grossly normal. Ears: TMs clear AU, EACS WNL Nose: Patent, without discharge. Neck: Supple, no adenopathy or thyromegaly. Lungs: Clear to auscultation bilaterally. No rales, rhonchi or wheeze noted. Good air flow in all villegas. Heart: Regular rate and rhythm. No murmurs, click, rubs or gallops are noted. : Deferred. Reviewed HAY Pulses: Peripheral pulses are equal and palpable bilaterally. Extremities: No clubbing, cyanosis nor edema is noted. Significant calluses to pads on the feet. Neurologic: Gait and station normal. Cranial Nerves 2-12 intact. Motor strength grossly symmetrical and intact. No sensory loss. Balance normal. Skin: No rashes, ulcers, or lesions noted. Turgor is good. Skin color is good. Hair and nails are without abnormalities. Psych: Normal eye contact, affect and mood appropriate, and normal interactions. Patient is alert and appropriate to context. Depression scale is negative. Results - Labs: Elevated liver enzyme from er 2023 and mild elevated LDL Discussion Notes During the visit, I discussed the current status of the patient's ADHD medication regimen and confirmed stability and adherence with methylphenidate ER 36 mg daily. I reviewed family history with the patient, noting maternal thyroid disease and grandfather's lung cancer, which may place him at increased risk for similar conditions. We discussed the current callus formation on the feet and the potential need for better management to prevent complications. Identified areas for health maintenance included verifying the most recent flu vaccination in 2023 and that tetanus immunization is up-to-date as of 2017. I addressed the concerns about liver health and cholesterol, agreeing to obtain a lipid panel and liver function tests today to ensure these parameters remain stable. Additionally, I provided reassurance regarding his father's prostate screening and explained his risk given his age and family history. Anticipatory guidance was given for future routine prostate screening starting at age 40. Assessment and Plan 28-year-old male with history of ADHD pr esenting for a complete physical examination and ADHD medication review. The patient is stable on his current methylphenidate regimen, with no significant side effects reported. Family history raises consideration for thyroid disease and prostate concerns. Previous elevated liver enzymes suggest ongoing monitoring. The recent surgery for L ACL repair is followed by physical therapy, contributing to musculoskeletal health. 1. Callus Formation On Feet Educated patient on potential risks coming from calluses. Discussed home foot care, including Epsom salt soaks. Consideration of professional foot care services like pedicures as preventive measures. 2. Meniscus Injury Status Post Left Acl Repair Patient is undergoing physical therapy post-surgery. Provided reassurance on rehabilitation progress and expected duration. Suggested checking in regularly with physical therapy. 3. Family History Of Prostate Issues Advised surveillance of prostate health following family history indications. Education on future screening from age 40 was provided, with explanations relevant to risks due to age and genetic predisposition. 4. Herpes Simplex Virus Type 1 No active episode reported. Continued vigilance for outbreaks is advised. Standard symptomatic treatment as needed. 5. Adhd The patient continues on methylphenidate ER 36 mg daily. He reports stability in symptoms. Education on maintaining consistent medication uptake was emphasized. We discussed that he will now only require visits for medication checks every 90 days, with prescriptions extended to allow for 30-day refills. 6. ^ LFT and LDL An order for current liver function tests and cholesterol was placed to monitor the past mild elevation in bilirubin levels. Discussion focused on ensuring lab follow-ups to track any changes. Patient Instructions - Continue current ADHD medication daily . - Attend scheduled physical therapy sess ions as planned. - Complete stated laboratory tests for l iver and cholesterol profile today. - Follow home care recommendations for f oot calluses, such as regular foot soaks and professional pedicures if feasible. - Remain attentive to personal signs of potential hereditary diseases; discuss any new symptoms early. - Consider future routine prostate healt h screenings starting at age 40. - Maintain routine vaccinations and heal th check-ups. - Avoid situations that may significantl y disrupt sleep. Seek balance between leisure activities and rest. Patient was informed and verbally consented to the use of an ambient scribe for clinic note documentation during this visit. 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 1. Little interest or pleasure in doing things: not at all 2. Feeling down, depressed, or hopeless: not at all 3. Trouble falling or staying asleep, or sleeping too much: not at all 4. Feeling tired or having little energy: not at all 5. Poor appetite or overeating: not at all 6. Feeling bad about yourself - or that you are a failure or have let yourself or your family down: not at all 7. Trouble concentrating on things, such as reading the newspaper or watching television: not at all 8. Moving or speaking so slowly that other people could have noticed. Or the opposite - being so fidgety or restless that you have been moving around a lot more than usual: not at all 9. Thoughts that you would be better off or of hurting yourself in some way: not at all Total score: 0 Depression Screening Interpretation: Negative Depression Screening Done: Yes 51720 - PHQ-9 Billing: Yes Source: Developed by Drs. Francis Keane, Omayra Delatorre, Mart Barber and colleagues, with an educational jason from [employer] Thrive Questionnaire Date Thrive assessed: 05/10/24 I am a: Patient What is your living situation today?: I have a steady place to live Within the past 12 months, did the food you bought not last and you didn't have the money to get more?: Never true Within the past 12 months, did you worry whether your food would run out before you got money to buy more?: Never true Do you have trouble paying for medicines?: No Do you have trouble getting transportation to medical appointments?: No Do you have trouble paying your heating and electricity bill?: No Do you have trouble taking care of your child, family member or friend?: No Do you have trouble with day-to-day activities such as bathing, preparing meals, shopping, managing finances, etc.?: No Are you currently unemployed and looking for a job?: No Are you interested in more education?: No Please select the resources that you would like help with: None Currently or been in a relationship where the following occur: No concerns reported THRIVE Score: 0 AUDIT C Alcohol Use Questionnaire (AUDIT-C) 1. How often do you have a drink containing alcohol?: 2-3 times a week 2. How many drinks containing alcohol do you have on a typical day when you are drinking?: 3 or 4 3. How often do you have six or more drinks on one occasion?: Less than monthly Total Score: 5 Score Reviewed/Action Taken: Yes ALDO-7 AMB Questionnaire ALDO-7 Date ALDO - 7 assessed: 05/10/24 Feeling nervous, anxious, or on edge: 0 = Not at all Not being able to stop or control worryin = Not at all Worrying too much about different things: 0 = Not at all Trouble relaxin = Not at all Being so restless that it is hard to sit still: 0 = Not at all Becoming easily annoyed or irritable: 0 = Not at all Feeling afraid as if something awful might happen: 0 = Not at all Total ALDO-7 score (0-4 normal; 5-9 mild; 10-14 moderate; 15-21 severe): 0 Source: Developed by Drs. Francis Keane, Omayra Delatorre, Mart Barber and colleagues, with an educational jason from [employer] ALDO-7 Assessment Billing ALDO-7 Assessment Tool: ALDO-7 Assessment 30831 Physical exam (Primary Care) Vital Signs: Last Vital Signs Temp 98.2 F 05/10/24 10:43 Pulse 68 05/10/24 10:43 BP 118/72 05/10/24 10:43 Pulse Ox 98 05/10/24 10:43 Oxygen Delivery Method Room Air 05/10/24 10:43 BMI result Body Mass Index 29.1 Tobacco/Smoking Status: Tobacco use Status Tobacco use date assessed 05/10/24 05/10/24 10:49 Patient Tobacco Use Status Never used Tobacco 05/10/24 10:49 e-Cigarette/Vaping Use Former Use 05/10/24 10:49 PHQ-9: PHQ-9 Score PHQ-9: Total score 0 05/10/24 10:55 Depression Screening Interpretation: Negative Thrive Assessment: Date of Thrive Assessment Date Thrive assessed 05/10/24 05/10/24 10:49 Currently or been in a relationship where the following occur: No concerns reported Coding Level of Care Code Est Pt Prev Care 18-39y(16598) Diagnoses Annual physical exam Z00.00 Elevated transaminase level R74.01 Moderate mixed hyperlipidemia not requiring statin therapy E78.2 Hyperlipidemia type: moderate mixed hyperlipidemia not requiring statin therapy Callus L84 Attention deficit hyperactivity disorder (ADHD), predominantly inattentive type F90.0 Attention deficit-hyperactivity disorder type: predominantly inattentive Human herpes simplex virus type 1 (HSV-1) DNA detected B00.9 History of repair of anterior cruciate ligament of left knee Z98.890 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 abdominal ultrasound complete to include elastography. Code(s): R74.01 - Elevation of levels of liver transaminase levels Category: Medical (3) Hyperlipidemia: Code(s): E78.5 - Hyperlipidemia, unspecified Category: Medical Qualifiers: Hyperlipidemia type: moderate mixed hyperlipidemia not requiring statin therapy Qualified Code(s): E78.2 - Mixed hyperlipidemia (4) Callus: Comment: BILAT FEET Code(s): L84 - Corns and callosities Category: Medical (5) ADHD: Comment: Was on Concerta in past, worked well for ADHD but caused big decrease in appetite. Code(s): F90.9 - Attention-deficit hyperactivity disorder, unspecified type Category: Medical Qualifiers: Attention deficit-hyperactivity disorder type: predominantly inattentive Qualified Code(s): F90.0 - Attention-deficit hyperactivity disorder, predominantly inattentive type (6) Human herpes simplex virus type 1 (HSV-1) DNA detected: Comment: Education provided to him today. Safe sex encouraged. Code(s): B00.9 - Herpesviral infection, unspecified Category: Medical (7) History of repair of anterior cruciate ligament of left knee: Code(s): Z98.890 - Other specified postprocedural states Category: Medical (8) History of Bernabe-Emre toxic epidermal necrolysis overlap syndrome: Code(s): Z87.2 - Personal history of diseases of the skin and subcutaneous tissue Category: Medical Plan . Orders: Orders Comprehensive Velma. Panel Fast Today E78.5 - Hyperlipidemia, unspecified, R74.01 - Elevation of levels of liver transaminase levels Lipid Panel Today E78.5 - Hyperlipidemia, unspecified, R74.01 - Elevation of levels of liver transaminase levels Medications: Changed From methylphenidate HCl ER Partial Fill upon patient request. 36 mg PO DAILY 30 tabs 0RF To methylphenidate HCl ER Partial Fill upon patient request. 36 mg PO DAILY 90 days 90 tabs 0RF Patient Instructions: Health screenings for men You should visit your health care provider regularly, even if you feel healthy. The purpose of these visits is to: Screen for medical issues Assess your risk for future medical problems Encourage a healthy lifestyle Update vaccinations and other preventive care services Help you get to know your provider in case of an illness Information Even if you feel fine, you should still see your provider for regular checkups. These visits can help you avoid problems in the future. For example, the only way to find out if you have high blood pressure is to have it checked regularly. High blood sugar and high cholesterol level also may not have any symptoms in the early stages. Simple blood tests can check for these conditions. There are specific times when you should see your provider or receive specific health screenings. The [place] Preventive Services Task Force publishes a list of recommended screenings. Below are screening guidelines for men ages 40 to 64. BLOOD PRESSURE SCREENING Have your blood pressure checked at least once every year. Watch for blood pressure screenings in your area. Ask your provider if you can stop in to have your blood pressure checked. Ask your provider if you need your blood pressure checked more often if: You have diabetes, heart disease, kidney problems, or are overweight or have certain other health conditions You have a first-degree relative with high blood pressure You are Black Your blood pressure top number is from 120 to 129 mm Hg, or the bottom number is from 70 to 79 mm Hg If the top number is 130 mm Hg or greater or the bottom number is 80 mm Hg or greater, this is considered stage 1 hypertension. Schedule an appointment with your provider to learn how you can lower your blood pressure. Effects of age on blood pressure CHOLESTEROL SCREENING Cholesterol screening should begin at age 35 for men with no known risk factors for coronary heart disease. Repeat cholesterol screening should take place: Every 5 years for men with normal cholesterol levels More often if changes occur in lifestyle (including weight gain and diet) More often if you have diabetes, heart disease, kidney problems, or certain other conditions COLORECTAL CANCER SCREENING If you are under age 45, talk to your provider about getting screened. You may need to be screened if you have a strong family history of colon cancer or polyps. Screening may also be considered if you have risk factors such as a history of inflammatory bowel disease or polyps. If you are age 45 to 75, you should be screened for colorectal cancer. There are several screening tests available: A stool-based fecal occult blood (gFOBT) or fecal immunochemical test (FIT) every year A stool sDNA test every 1 to 3 years Flexible sigmoidoscopy every 5 years or every 10 years with stool testing FIT done every year CT colonography (virtual colonoscopy) every 5 years Colonoscopy every 10 years You may need a colonoscopy more often if you have risk factors for colorectal cancer, such as: Ulcerative colitis A personal or family history of colorectal cancer A history of growths in your colon called adenomatous polyps DENTAL EXAM Go to the dentist once or twice every year for an exam and cleaning. Your dentist will evaluate if you have a need for more frequent visits. DIABETES SCREENING All adults who do not have risk factors for diabetes should be screened starting at age 35 and repeated every 3 years. If you have other risk factors for diabetes, such as a first degree relative with diabetes, overweight or obesity, high blood pressure, prediabetes, or a history of heart disease, you may be tested more often. If you are overweight and have other risk factors, such as high blood pressure and are planning to become , screening is recommended. EYE EXAM Have an eye exam every 2 to 4 years ages 40 to 54 and every 1 to 3 years ages 55 to 64. Your provider may recommend more frequent eye exams if you have vision problems or glaucoma risk. Have an eye exam that includes an examination of your retina (back of your eye) at least every year if you have diabetes. IMMUNIZATIONS Commonly needed vaccines include: Flu shot: get one every year COVID-19 vaccine: ask your provider what is best for you Tetanus-diphtheria and acellular pertussis (Tdap) vaccine: have as one of your tetanus-diphtheria vaccines if you did not receive it as an adolescent Tetanus-diphtheria: have a booster (or Tdap) every 10 years Varicella vaccine: receive 2 doses if you never had chickenpox or the varicella vaccine and were born in 1979 or after Hepatitis B vaccine: receive 2, 3, or 4 doses, depending on your exact circumstances, if you did not receive these as a child or adolescent, until age 59 Shingles (herpes zoster) vaccine: at or after age 50 Ask your provider if you should receive other immunizations, especially if you have certain medical conditions, such as diabetes or are at increased risk for some diseases such as pneumonia. INFECTIOUS DISEASE SCREENING Screening for hepatitis C: all adults ages 18 to 79 should get a one-time test for hepatitis C. Screening for human immunodeficiency virus (HIV): all people ages 15 to 65 should get a one-time test for HIV. Depending on your lifestyle and medical history, you may need to be screened for infections such as syphilis, chlamydia, and other infections. LUNG CANCER SCREENING You should have an annual screening for lung cancer with low-dose computed tomography (LDCT) if: You are age 50 to 80 years AND You have a 20 pack-year smoking history AND You currently smoke or have quit within the past 15 years OSTEOPOROSIS SCREENING If you are age 50 to 64 and have risk factors for osteoporosis, you should discuss screening with your provider. Risk factors can include long-term steroid use, low body weight, smoking, heavy alcohol use, having a fracture after age 50, or a family history of hip fracture or osteoporosis. Osteoporosis PHYSICAL EXAM All adults should visit their provider from time to time, even if they are healthy. The purpose of these visits is to: Screen for diseases Assess risk of future medical problems Encourage a healthy lifestyle Update vaccinations and other preventive care services Maintain a relationship with a provider in case of an illness Your height, weight, and body mass index (BMI) should be checked at every exam. During your exam, your provider may ask you about: Depression and anxiety Diet and exercise Alcohol and tobacco use Safety, such as use of seat belts and smoke detectors Your medicines and risk for interactions PROSTATE CANCER SCREENING If you're 55 through 69 years old, before having the test, talk to your provider about the pros and cons of having a PSA test. Ask about: Whether screening decreases your chance of dying from prostate cancer. Whether there is any harm from prostate cancer screening, such as side effects from testing or overtreatment of cancer when discovered. Whether you have a higher risk of prostate cancer than others. If you are age 55 or younger, screening is not generally recommended. You should talk with your provider about if you have a higher risk for prostate cancer. Risk factors include: Having a family history of prostate cancer (especially a brother or father) Being If you choose to be tested, the PSA blood test is repeated over time (yearly or less often), though the best frequency is not known. Prostate examinations are no longer routinely done on men with no symptoms. Prostate cancer SKIN EXAM Your provider may check your skin for signs of skin cancer, especially if you're at high risk. People at high risk include those who have had skin cancer before, have close relatives with skin cancer, or have a weakened immune system. TESTICULAR EXAM The [place] Preventive Services Task Force (USPSTF) now recommends against performing testicular self-exams. Doing testicular self-exams has been shown to have little to no benefit.
[2024-05-10 10:43] VITALS: BP 118/72; PULSE 68; TEMP 36.8; O2SAT 98; BMI 29.1
--- OUTSIDE RECORDS SUMMARY | 2024-05-10 12:26 | XMS_ITS | Data Portability ---
Author Organization [place] - [facility], [facility] Address [address] [place] [address] Assessment Encounter Date Assessment Date Assessment LastModified by Organization Details LastModified Time 01/31/2016 01/31/2016 Srinivasa Ventura- recovering well on cyclosporin. has FU wihoptho and derm. Doing well. call with concerns jyunis Not available 01/31/2016 12:31:16 09/07/2016 09/07/2016 ADD- doing well on concerta 45. stable on med. will cont at current dose jyunis Not available 09/07/2016 09:55:02 Plan of Treatment Reminders Order Date Submit Date Provider Last Modified By Organization Details Last Modified Time Details Appointments None recorded. Lab CT + NG DNA, PCR, urine 2015 016 [facility], [address] [place], [address], 6 04:09:55 lipid panel, serum - FASTING 2016 017 sbotta [facility], [address] [place], [address], 8 11:32:10 CT + NG DNA, PCR, urine 2016 017 NEIL [facility], [address] [place], [address], 7 11:38:44 Referral None recorded. Procedures None recorded. Surgeries None recorded. Imaging None recorded. Medication Orders methylpheni date ER 18 mg tablet,exte nded release 24 hr 2015 016 [facility]acy #[id number], [address] [place], [address], 6 04:10:04 methylpheni date ER 27 mg tablet,exte nded release 24 hr 2015 [address] [facility]armacy #0838, [address] [place], [address], 6 04:10:06 tretinoin 0.025 % topical cream 2015 [address] [facility]/Pharmacy #0838, [address] [place], [address], 6 04:10:05 methylpheni date ER 18 mg tablet,exte nded release [address] [facility]/Pharmacy #0838, [address] [place], [address], 7 09:55:44 methylpheni date ER 27 mg tablet,exte nded release [address] [facility]/Pharmacy #0838, [address] [place], [address], 7 09:55:44 Patient TargetsNo targets recorded. Patient Instructions Encounter Date Encounter Id Patient Instructions Last Modified By Organization Details Last Modified Time 01/17/2016 [id number] Worsening rash-w / worsening conjunctivitis , 7lb weight loss over the past 3 days and difficulty w/ voiding 2nd to pain. Could just be severe coxsackie but ? ? laquita syndrome although no arthritis. Check urine PCR.Definately needs better pain management as well as nutritional intake. Spoke w/ pedi resident An Anguiano-will admit [email or web address] Not available 01/17/2016 19:05:48 01/31/2016 [id number] learning about bernabe-emre syndrome NEIL Not available 02/02/2016 02:08:30 02/17/2016 [id number] influenza (flu) vaccine: care instructions NEIL Not available 02/19/2016 02:07:16 cont acne meds; cont concerta at current dose, and advised to take daily; continue to avoid self mediation; sleep disc with rare melatonin ok; meeting all treatment goals for life issues on current dose of meds with no side effects Not available 02/17/2016 13:46:52 04/20/2016 [id number] patient health questionnaire depression assessment* lthomson Not available 04/20/2016 10:38:11 immunization: wh at you need to know NEIL Not available 04/22/2016 02:06:31 age appropriate anticipatory guidance HAY discussed RT: no refills for stimulant meds 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 Medication should be given on non school days: YES Schedule a recheck appointment in: 6 months ADD educational handouts given to parent: YOUR SELF MANAGEMENT PLAN: What you can do to meet your treatment goals: Take medication as prescribed and request refills 3 days in advance. Report difficulties at school, home or any undesired side effects of medication to your doctor. Keep all scheduled recheck appointments, appointments with specializes, and testing that your doctor has requested. Complete Parent/Teacher Followup [place] Forms AND provide them prior to your appointment for the doctor to review. Complete self monitoring forms if your doctor requests AND bring them to your recheck appointment. ALYSHA: the [employer] on ADD. www.ALYSHA.org or 656-900-7585 Common Medication Side Effects: decreased appetite, sleep problems, transient stomachache, transient headache, behavioral rebound, minor growth suppression, minor weight loss. Call your doctor immediately if any infrequent side effects occur: increased heart rate and or blood pressure, dizziness, hallucinations/man ia, worsening of tics or Tourette's Syndrome (rare). jyunis Not available 09/07/2016 09:56:10 Reason for Referral None Reported. Results Created Date Observation Date Name Description Value Unit Range Abnormal Flag Note LastModifiedBy Organization Detail LastModifiedTime 04/20/19 17 04/20/2016 patie nt healt h quest ionna eron depre ssion asses sment * PHQ-9 negati ve Not Available [facility] [address] [place] [address], [id number], 04/20/2016 10:10:11 01/17/20 16 01/20/2016 CT + NG DNA, PCR, urine urine chlamydia amp probe NEGAT LAURY No Chlam ydia Trach omati s RNA detec herminia in this patie nt's sampl e (REFE RENCE RANGE /NORM AL VALUE : NOT DETEC HERMINIA) Not Available [facility] [address] [place], [address], 01/20/2016 13:08:07 01/17/20 16 01/20/2016 CT + NG DNA, PCR, urine urine GC amp probe NEGAT LAURY No Neiss eria Gonor rhoea e RNA detec herminia in this patie nt's sampl e (REFE RENCE RANGE /NORM AL VALUE : NOT DETEC HERMINIA) NOTE: This test uses trans cript ion-m ediat ed ampli ficat ion metho d to detec t rRNA from C.Tra choma tis and N.Yohan orrho eae. A negat laury resul t does not precl ude infec tion. In the case of a negat laury urine resul t, testi ng of an endoc ervic al(fe male) or ureth ral(m analilia) speci men is recom sacha d if there is high clini liliya suspi cion of infec tion. The perfo rmanc e yogi cteri stics of this test have not been evalu ated in child jackie. The Aptim a Combo 2 assay is not inten ded for the evalu ation of suspe cted sexua l abuse or for other medic o-leg al indic ation s. The order ing provi renea shoul d asses s if the patie nt had conse nsual sex witho ut risk of sexua l abuse . [facility] if neede d. Conta ct phone chuy r . Thera peuti c failu re or succe ss canno t be deter mined with the Aptim a Combo 2 assay since nucle ic acid may persi st follo wing appro priat e antim icrob ial thera py. The Cente rs for Disea se Contr ol and Preve ntion ([facility]) recom mends confi rmato ry retes ting using cultu re or a diffe rent nucle ic acid ampli ficat ion test when posit laury resul ts occur , if indic ated. Not Available [facility] [address] [place], [address], 01/20/2016 13:08:07 04/20/19 17 04/21/2016 CT + NG DNA, PCR, urine urine chlamydia amp probe NEGAT LAURY No Chlam ydia Trach omati s RNA detec herminia in this patie nt's sampl e (REFE RENCE RANGE /NORM AL VALUE : NOT DETEC HERMINIA) Not Available [facility] [address] [place], [place], [address], 04/21/2016 11:38:44 04/20/19 17 04/21/2016 CT + NG DNA, PCR, urine urine GC amp probe NEGAT LAURY No Neiss eria Gonor rhoea e RNA detec herminia in this patie nt's sampl e (REFE RENCE RANGE /NORM AL VALUE : NOT DETEC HERMINIA) NOTE: This test uses trans cript ion-m ediat ed ampli ficat ion metho d to detec t rRNA from C.Tra choma tis and N.Yohan orrho eae. A negat laury resul t does not precl ude infec tion. In the case of a negat laury urine resul t, testi ng of an endoc ervic al(fe male) or ureth ral(m analilia) speci men is recom sacha d if there is high clini liliya suspi cion of infec tion. The perfo rmanc e yogi cteri stics of this test have not been evalu ated in child jackie. The Aptim a Combo 2 assay is not inten ded for the evalu ation of suspe cted sexua l abuse or for other medic o-leg al indic ation s. The order ing provi renea shoul d asses s if the patie nt had conse nsual sex witho ut risk of sexua l abuse . [facility] if neede d. Conta ct phone numbe r . Thera peuti c failu re or succe ss canno t be deter mined with the Aptim a Combo 2 assay since nucle ic acid may persi st follo wing appro priat e antim icrob ial thera py. The Cente rs for Disea se Contr ol and Preve ntion ([facility]) recom mends confi rmato ry retes ting using cultu re or a diffe rent nucle ic acid ampli ficat ion test when posit laury resul ts occur , if indic ated. Not Available [facility] [address], [place], [address], 04/21/2016 11:38:44 Result Notes None recorded. Problems Name Problem SNOMED Code Status Onset Date Resolution Date Notes Provider Name and Address Organization Details Recorded Time Well child 481778729 Completed 10/03/2014 [facility] 5 11:49:19 Headache 41595149 Completed 200710/11/2012 [facility] 3 10:46:10 Injury of head 44908030 Completed 200810/11/2012 [facility] 3 10:46:10 Cellulitis 055807548 Completed 200809/23/2011 Not Available [facility] 3 03:00:57 Influenza with respirator y manifestat ion other than pneumonia Completed 09/23/2011 Not Available [facility] 3 03:00:57 Child attention deficit disorder 964718114 Completed 200810/11/2012 [facility] 7 11:16:48 Attention deficit hyperactiv ity disorder, combined type 61297800 Completed 07/31/2015 [facility] 6 09:46:04 Anxiety state 311260315 Completed 200710/11/2012 [facility] 3 10:57:39 Allergic rhinitis 96888825 Completed 200810/11/2012 [facility] 3 10:57:39 Acute pharyngiti s 278056531 Completed 10/11/2012 [facility] 3 10:46:10 Acute pharyngiti s 647345868 Completed 09/23/2011 Not Available [facility] 3 03:00:57 Sprains and strains of joints and adjacent muscles Completed 200809/23/2011 Not Available [facility] 3 03:00:57 Acute upper respirator y infection 95442207 Completed 10/11/2012 [facility] 3 10:46:10 Acute upper respirator y infection 71590088 Completed 09/23/2011 Not Available [facility] 3 03:00:57 Pain in throat 319509591 Completed 09/23/2011 Not Available [facility] 3 03:00:57 Localized infection of skin AND/OR subcutaneo us tissue 413572055 Completed 09/23/2011 Not Available [facility] 3 03:00:57 Sprain of shoulder and upper arm Completed 09/23/2011 Not Available [facility] 3 03:00:57 Dysfunctio n of eustachian tube 77876051 Completed 10/11/2012 [facility] 3 10:46:10 Acute conjunctiv itis 01086535 Completed 10/11/2012 [facility] 3 10:46:10 Migraine 03192913 Completed 200810/11/2012 [facility] 3 10:57:39 Acne 04532653 Active [facility] 5 09:31:11 Open wound 373190956 Completed 200709/23/2011 Not Available [facility] 3 03:00:57 Pain in limb 04937404 Completed 09/23/2011 Not Available [facility] 3 03:00:57 Developmen bandar academic disorder 4732413 Completed 200710/11/2012 [facility] 3 10:57:39 Concussion Completed 11/28/2013 [facility] 4 09:23:02 Acute pharyngiti s 348061661 Completed 11/28/2013 [facility] 4 09:23:02 Viral syndrome 396654234 Completed 11/28/2013 [facility] 4 09:23:02 Flank pain 002247873 Completed 11/28/2013 [facility] 4 09:23:02 Backache 906471485 Completed 10/31/2014 [facility] 5 09:20:44 Pain in wrist 67179805 Completed 10/03/2014 [facility] 5 11:49:24 Problem behavior 350808081 Completed 10/31/2014 [facility] 5 09:20:44 Child attention deficit disorder 880976373 Completed 05/27/2016 [facility] 7 11:16:48 Acute pharyngiti s 514917134 Completed 10/31/2014 [facility] 5 09:20:44 Erythema multiforme 51960228 Completed 201501/19/2016 [facility] 6 15:14:59 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 Medical Equipment None Reported. Allergies Allergen ID Allergen Name Allergen Category Reaction Reaction Severity Criticality Documentation Date Start Date Code Code System Note Provider Name and Address Organization Details Recorded Time 71412 ibuprofen medicatio n bernabe-j ohnson syndrome Not available Not available 01/31/2016 5640 RxNorm dx with Garret ns-Padmini hnson Syndr ome, unsur e if r/t Ibupr ofen vs viral , but told to avoid IB [facility] 6 13:19:49 Medications Name Sig Start Date Stop Date Status Note LastModified by Organization Details LastModified Time prednisone 10 mg tablet 01/16 completed Not Available Not Available Not Available azithromyci n 250 mg tablet 01/13 completed Not Available Not Available Not Available Lidocaine Viscous 2 % mucosal solution 01/30 completed Not Available Not Available Not Available ofloxacin 0.3 % eye drops 02/16 completed Not Available Not Available Not Available tretinoin 0.025 % topical cream APPLY TO THE AFFECTED AREA(S) TOPICALLY ONCE DAILY IN THE MORNING active Not Available Not Available No t Available methylpheni date ER 54 mg tablet,exte nded release 24 hr Take 1 tablet every day by oral route for 30 days. 07/17 completed Not Available Not Available Not Available clindamycin 1 %-benzoyl peroxide 5 % topical gel APPLY EVERY EVENING 01/13 completed Not Available Not Available Not Available acetaminoph en 120 mg-codeine 12 mg/5 mL Elixir active Not Available Not Available Not Available adapalene 0.1 % topical cream Apply 1 applicati on every day by topical route. active Not Available Not Available No t Available amoxicillin 875 mg tablet TK 1 T PO BID active Not Available Not Available No t Available prednisolon e acetate 1 % eye drops,suspe nsion active Not Available Not Available Not Available gentamicin 0.3 % eye drops active Not Available Not Available Not Available polymyxin B sulfate 10,000 unit-trimet hoprim 1 mg/mL eye drops INSTILL 2 DROPS INTO BOTH EYES 3 TIMES DAILY FOR 5 DAYS active Not Available Not Available No t Available sulfamethox azole 200 mg-trimetho prim 40 mg/5 mL oral suspension active Not Available Not Available N ot Available mupirocin 2 % topical ointment active Not Available Not Available Not Available cyclosporin e modified 100 mg capsule 02/16 completed Not Available Not Available Not Available methylpheni date ER 18 mg tablet,exte nded release 24 hr TAKE 1 TABLET BY MOUTH EVERY MORNING 2016 active Not Available Not Available Not Avai lable methylpheni date ER 36 mg tablet,exte nded release 24 hr Take 1 tablet every day by oral route in the morning. 2011 active Not Available Not Available Not Avai lable methylpheni date ER 27 mg tablet,exte nded release 24 hr TAKE 1 TABLET BY MOUTH EVERY MORNING 2016 active Not Available Not Available Not Avai lable melatonin active HS PRN Not Available Not Available Not Available Focalin XR 15 mg capsule,ext ended release Take 1 capsule every day by oral route. active Not Available Not Available No t Available Epiduo 0.1 %-2.5 % topical gel APPLY TO THE AFFECTED AREA(S) AFTER WASHING BY TOPICAL ROUTE ONCE DAILY 2014 active Not Available Not Available Not Avai lable Moxeza 0.5 % eye drops INSTILL 1 DROP INTO OU Q 12 H active Not Available Not Available No t Available Systane Gel 0.3 % eye gel 02/16 completed Not Available Not Available Not Available Goniovisc 2.5 % eye drops 02/16 completed Not Available Not Available Not Available Vitals Date Recorded Body height Body weight Body mass index (BMI) Provider Name and Address Organization Details Last Updated DateTime 01/17/2016 166.37 cm 25450.58 g 23.6 kg/m2 Ella Flowers MD [address] [place] [address], [id number], [place] - [facility] 01/17/2016 17:37:55 Date Recorded Body weight Provider Name an d Address Organization Details Last Updated DateTime 01/31/2016 53771.89 g Heydi Holleyaranza [facility] 01/31/2016 10:34:38 Date Recorded Body weight Body height Body mass index (BMI) Systolic blood pressure Diastolic blood pressure Provider Name and Address Organization Details Last Updated DateTime 02/17/2016 73444.11 g 167.01 cm 24.1 kg/m2 122 mm[Hg] 64 mm[Hg] Cinda Serrano [facility] 6 13:28:33 Date Recorded Body height Body weight Body mass index (BMI) Systolic blood pressure Diastolic blood pressure Provider Name and Address Organization Details Last Updated DateTime 04/20/2016 167.01 cm 70502.82 g 25.2 kg/m2 118 mm[Hg] 68 mm[Hg] Nila Argueta M.A. [facility] 7 10:13:30 Date Recorded Body height Body mass index (BMI) Body weight Systolic blood pressure Diastolic blood pressure Provider Name and Address Organization Details Last Updated DateTime 09/07/2016 167.64 cm 24 kg/m2 02068.47 g 112 mm[Hg] 80 mm[Hg] Genesis Del Cid [facility] 7 09:45:50 Social History Question Answer Notes LastModified by Organizat ion Details LastModified Time Tobacco Smoking Status [facility] 06/18/2011 10:34:07 What Type Of Diet Are You Following? REGULAR Information not available 01/31/2011 Parent's Marital Status Information not available 01/31/2011 Home Situation Mother [email or web address] Informatio n not available 04/20/2016 Siblings Desiree 11/27/93 /addis hubbard Information not available 08/14/2013 Passive Smoke Exposure No Information not available 01/31/2011 Parent's Name Glo Amaya Information not available 01/31/2011 Parent's Name Byron Information not available 01/31/2011 What Is The Name Of Your School? [employer] 5 Information not available 01/31/2011 Do You Use Your Seat Belt Or Car Seat Routinely? Yes 5 Information not available 01/31/2011 Are You Passively Exposed To Smoke? No nasselin Information not available 06/01/2013 Year In School 7 [id number] Information not available 01/31/2011 Sex: Unknown Functional Status None recorded. Mental Status None recorded. Family History Relationship Description Onset Age of this Age Resolved Age Notes LastModified by Organization Details LastModified Time Maternal Grandmother Malignant neoplastic disease [email or web address] Not available 2014 09:07:15 Paternal Grandfather Malignant neoplastic disease ecardillo Not available 2014 09:07:15 Paternal Grandfather Heart disease ecardillo Not available 2014 09:07:15 Mother Asthma ecardillo Not available 10/31/2014 09:07:15 Mother Graves' disease on thyrox ine ecardillo Not available 10/31/2014 09:07:15 Maternal Grandfather Hypercholest erolemia ecardillo Not available 2014 09:07:15 Maternal Grandfather Malignant neoplastic disease ecardillo Not available 2014 09:07:15 Sister Asthma ecardillo Not available 10/31/2014 09:07:15 Father Alcoholism ecardillo Not availa ble 10/31/2014 09:07:15 Notes:Updated verbally Medical History Condition Response CARDIAC PROBLEMS N ALLERGIC AND IMMUNOLOGIC PROBLEMS N DEVELOPMENTAL/ BEHAVIORAL PROBLEMS N MUSCLE/ JOINT/ BONE PROBLEMS N DERMATOLOGIC PROBLEMS/ECZEMA N HOSPITALIZATIONS Y ENT PROBLEMS/OTITIS MEDIA/ CHRONIC N RENAL PROBLEMS N HEMATOLOGIC /ONCOLOGIC PROBLEMS N ACCIDENTS INJURIES Y NEUROLOGIC/ SEIZURES OR CONVULSIONS N ADHD Y ENDOCRINE PROBLEMS/DIABETES Y HEADACHES/MIGRAINES/DIZZINESS N GI PROBLEMS/CONSTIPATION N CONGENITAL AND GENETIC PROBLEMS N ORTHOPEDIC PROBLEMS Y CHICKEN POX / VARICELLA HISTORY or POSIT LAURY TITER N PUMONARY PROBLEMS/ ASTHMA N PSYCH PROBLEMS N Immunizations Vaccine Type Date Status Note Provider Nam e and Address Organization Details Recorded Time Influenza, split virus, trivalent, preservative 1 completed Not Available [facility] 04/15/2019 02:35:18 HPV, quadrivalent 2 completed Not Available [facility] 04/15/2019 02:34:00 Influenza, split virus, trivalent, preservative 2 completed Not Available [facility] 04/15/2019 02:35:22 HPV, quadrivalent 3 completed Not Available [facility] 04/15/2019 02:34:07 meningococcal MCV4P 3 completed Not Available [facility] 04/15/2019 02:33:33 Tdap 8 completed Not Available [facility] 01/31/2011 03:16:44 Influenza, split virus, quadrivalent, PF 3 completed Not Available [facility] 04/15/2019 02:35:36 influenza, unspecified formulation 8 completed Not Available [facility] 01/31/2011 03:16:44 DTaP, unspecified formulation 9 completed Renetta mays [facility] 05/12/2011 15:22:09 varicella 8 completed Renetta Mojicao tabatha [facility] 05/12/2011 15:22:09 Hib, unspecified formulation 7 completed Renetta Mojicao null [facility] 05/12/2011 15:34:00 polio, unspecified formulation 2 completed Renetta Mojicao tabatha [facility] 05/12/2011 15:34:00 DTaP, unspecified formulation 8 completed Renetta Mojicao null [facility] 05/12/2011 15:34:00 DTaP, unspecified formulation 7 completed Renetta Burno null [facility] 05/12/2011 15:34:00 DTaP, unspecified formulation 7 completed Renetta Mojicao tabatha [facility] 05/12/2011 15:34:00 Hep B, unspecified formulation 7 completed Renetta Mojicao tabatha [facility] 05/12/2011 15:34:00 Hib, unspecified formulation 8 completed Renetta mays [facility] 05/12/2011 15:34:00 polio, unspecified formulation 7 completed Renetta Burno null, [facility] 05/12/2011 15:34:00 DTaP, unspecified formulation 2 completed Renetta Burno null, [facility] 05/12/2011 15:34:00 MMR 1 completed Renetta Burno null, [facility] 05/12/2011 15:34:00 Hib, unspecified formulation 7 completed Renetta Burno null, [facility] 05/12/2011 15:34:00 Hep B, unspecified formulation 7 completed Renetta Burno null, [facility] 05/12/2011 15:34:00 Hep B, unspecified formulation 7 completed Renetta Burno null, [facility] 05/12/2011 15:34:00 MMR 8 completed Renetta Burno null, [facility] 05/12/2011 15:34:00 polio, unspecified formulation 7 completed Renetta Burno null, [facility] 05/12/2011 15:34:00 Hib, unspecified formulation 7 completed Renetta Burno null, [facility] 05/12/2011 15:34:00 polio, unspecified formulation 7 completed Renetta Burno null, [facility] 05/12/2011 15:34:00 HPV, quadrivalent 4 completed Not Available [facility] 04/15/2019 02:34:14 meningococcal ACWY, unspecified formulation 9 completed Not Available [facility] 01/31/2011 03:17:07 varicella 9 completed Not Available [facility] 01/31/2011 03:17:07 Influenza, split virus, quadrivalent, PF 6 completed Not Available [facility] 04/15/2019 02:37:14 Influenza, split virus, trivalent, preservative 0 completed Not Available [facility] 04/15/2019 02:35:05 Past Encounters Encounter ID Performer Location Encounter Start Date Encounter Closed Date Diagnosis/Indication Diagnosis SNOMED-CT Code Diagnosis ICD10 Code Diagnosis Note [id number] PVP Brennan[facility]ado w [address] [place] [address] 05/17/2007 13:16:00 05/17/2007 14:01:47 [id number] [facility] [place] [address] [place] [address] 07/06/2007 16:09:18 12/06/2008 01:23:50 [id number] PVP [facility] w [address] [place] [place] [address] 4 01/11/2008 15:01:04 12/06/2008 01:23:50 [id number] PVP [facility] [address] [place] [address] 4 01/26/2008 15:51:36 12/06/2008 01:23:50 [id number] PVP [facility] [address] [place] [address] 4 02/07/2008 09:29:16 12/06/2008 01:23:50 [id number] PVP [facility] [address] [place] [address] 4 02/08/2008 11:44:16 12/06/2008 01:23:50 [id number] PVP [facility] [address] [place] [address] 4 04/18/2008 14:54:21 12/06/2008 01:23:50 [id number] [address] 05/12/2008 09:39:17 05/12/2008 10:39:41 [id number] PVP [facility] [address] [place] [address] 4 05/27/2008 10:44:52 05/27/2008 11:13:13 [id number] PVP [facility] [address] [place] [address] 4 06/22/2008 15:10:43 06/22/2008 16:04:04 [id number] PVP [facility] [address] [place] [address] 4 08/15/2008 15:54:44 08/15/2008 17:00:01 [id number] PVP [place] [address] [place] [address] 4 12/23/2008 11:34:04 12/23/2008 12:37:15 [id number] PVP [place] [address] [place] [address] 4 01/14/2009 10:48:49 01/14/2009 12:09:01 [id number] P[facility] [place] [address] [place] [address] 4 01/25/2009 15:53:49 01/25/2009 17:30:28 [id number] P[facility] [place] [address] [place] [address] 4 05/21/2009 10:24:40 05/21/2009 11:51:50 [id number] PVP [place] [address] [place] [address] 4 06/26/2009 13:58:52 06/26/2009 14:45:48 [id number] PVP [place] [address] [place] [address] 4 12/24/2009 14:35:00 12/24/2009 16:37:47 [id number] PVP [place] [address] [place] [address] 4 05/19/2010 11:04:16 05/19/2010 12:06:42 [id number] PVP [place] [address] [place] [address] 4 06/02/2010 15:34:57 06/02/2010 18:08:47 [id number] PVP [place] [facility] [address] [place] [address] 4 07/21/2010 15:35:32 07/21/2010 16:11:00 [id number] PVP [place] [facility] [address] [place] [address] 4 09/17/2010 15:11:12 09/17/2010 15:55:52 [id number] PVP [place] [facility] [address] [place] [address] 4 01/01/2011 16:42:42 01/01/2011 17:23:01 [id number] PVP [place] [address] [place] [address] 4 01/30/2011 14:50:23 01/30/2011 17:04:30 [id number] PVP [facility] [address] [facility] [place] [address] 4 03/09/2011 14:27:10 03/09/2011 15:28:13 [id number] PVP [facility] [address] [facility] [place] [address] 4 06/18/2011 10:19:08 06/18/2011 11:11:43 [id number] PVP [facility] [address] [facility] [place] [address] 4 09/23/2011 15:02:19 09/23/2011 16:30:44 [id number] PVP [place] [address] [facility] [place] [address] 4 12/02/2011 15:20:21 12/02/2011 16:57:35 [id number] PVP [facility] [address] [facility] [address] 4 12/07/2011 09:59:49 12/07/2011 10:53:25 [id number] Jeanine Russell PVP [facility] [address] [facility] [place] [address] 4 06/20/2012 08:53:49 06/20/2012 09:16:36 [id number] Christine Koehler [facility] [address] [facility] [place] [address] 4 09/06/2012 15:27:50 09/06/2012 15:51:02 Attention deficit hyperactivity disorder, combined type 65370383 [id number] Nila Argueta M.A. PVP [address] [place] [address] 10/11/2012 10:25:47 10/11/2012 11:48:19 Well child [id number] Acne 49707833 Attention deficit hyperactivity disorder, combined type 17670251 [id number] Samantha Membreno PVP [facility] [address] [place] [address] 03/11/2013 09:00:41 03/11/2013 10:26:47 Concussion 07333432 Discussion etiology-2 nd impact syndrome-C GS =4.neuro exam wnl except balance. Gave school Accommodat ion Sheet as well as Back to Learn Protocol. Will not start back to Sport protocol until symptom for x 24 hrs. F/u in 5 days. Continue Concerta. May use OTC pain meds. [id number] [facility] Nik quesada [address] [place], [place] [address] [address] 4 06/01/2013 14:30:52 06/01/2013 14:58:41 Attention deficit hyperactivity disorder, combined type 61923780 Acne [id number] Jeanine Yvonne [facility] Nik [address] [address] 4 08/14/2013 16:14:53 08/14/2013 16:53:07 Acute pharyngitis 688957819 viral likely- disc sx tx and f/u prn + few ulceration s palate- no LAD doubt mono at this time- but if not better will need to check labs RSS- TC pend Viral syndrome [id number] Areli Hurtado R.N. [facility] Nik ques[address] [place] [address] 4 08/16/2013 09:11:08 08/16/2013 09:57:46 Acute pharyngitis 720857796 Flank pain 118881921 859344 [facility] Nik [address] [place] [address] 4 11/28/2013 09:09:03 11/28/2013 09:53:00 Well child 293439338 Attention deficit hyperactivity disorder, combined type 94407975 Backache 576158113 [id number] [facility] Nik [address] [address] 4 03/15/2014 14:26:59 03/15/2014 14:54:13 Pain in wrist 61496633 312135 Pawel Spangler [facility] Nik [address] [address] 4 06/01/2014 09:54:13 06/01/2014 10:38:46 Attention deficit hyperactivity disorder, combined type 36160486 Problem behavior 817950205 Acne 02313833 [id number] [facility] Nik [address] [place] [address] 4 09/13/2014 14:44:05 09/13/2014 15:04:22 Child attention deficit disorder 350795294 Attention deficit hyperactivity disorder, combined type 15929301 196369 Heydi Nieto [address] [address] 4 10/03/2014 11:01:21 10/03/2014 11:58:42 Acute pharyngitis 786234571 viral likely- disc sx tx and f/u prnRSS- TC pend Viral syndrome 169816066 Upper resp iratory infection 58632893 [id number] Ofelia Prieto M.A. [address] [address] 4 10/31/2014 08:57:25 10/31/2014 09:34:41 Adult health examination 384690317 Attention deficit hyperactivity disorder, combined type 78534973 Acne 41575566 061025 Pawel Spangler [address] [address] 4 05/30/2015 10:30:33 05/30/2015 11:28:09 Attention deficit hyperactivity disorder, combined type 22825348 F90.2 179876 Ella Flowers MD [address] [address] 4 01/14/2016 12:56:10 01/14/2016 15:03:34 Coxsackie virus disease 415253710 B34.1 544441 Ella Flowers MD [address] [address] 4 01/17/2016 17:00:24 01/17/2016 18:16:06 [facility] 383374817 R21 [id number] Ramin Nunez MD [address] [address] 4 01/31/2016 10:31:30 01/31/2016 12:31:53 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 [address] [place] [address] 09/07/2016 09:21:59 09/07/2016 10:00:15 Child attention deficit disorder 116014995 F90.9 Adult atte ntion deficit hyperactivity disorder 168169655 F90.9 Health Concerns Section Related Observation LastModified by Organization Detai ls LastModified Time None Recorded Concern Status LastModified by Organization Details LastModified Time None Recorded Advance Directives Directive None Recorded Payers Encounter Date Sequence Insurance Name Policy Number Policy Givens Covered Member ID Givens Member ID Guarantor Name 01/17/2016 1 [facility] - CHOICE [facility] OA PLUS [id number] Glo Jose Luis [id number] Glo Jose Luis 01/31/2016 1 [facility] [employer] - [facility]ICE [facility] PLUS [id number] Glo Jose Luis [id number] Glo Jose Luis 02/17/2016 1 [employer] - CHOICE [employer] OA PLUS [id number] Glo Jose Luis [id number] Glo Jose Luis 04/20/2016 1 [employer] - CHOICE [facility] OA PLUS [id number] Glo Jose Luis [id number] Glo Jose Luis 09/07/2016 1 [facility] [id number] Glo Jovani [id number] 5 [facility] Jose Luis Notes Date Note Type Note Provider Name and Address Organization Details Recorded Time 01/17/2016 text/html RS Sick Visit Narrative HistoryReported bypatient.Notes:Here 3 days ago, dx with hand foot and mouth. Rash was on hands, mouth and genital area, worsening. Very painful. Afebrile. Balmex to lesions on penis and calamine lotion on hands, not helping. Has difficulty walking due to pain in the genital area. Pt. barely able to drink/eat d/t pain in the mouth. Pain upon urination x 2 d. Has lesions in that area. No diff in appearance or odor to urine. Painful all of the time. Eyes itchy, still with d/c, worse. using the eye drops. No joint pain or swelling.still w/ cough Ella Flowers MD [address] [place] [address], , [facility] 01/17/2016 19:06:11 01/31/2016 text/html RS Sick Visit Narrative HistoryReported bypatient.Notes:Pt. dx with Bernabe-Emre syndrome. Pt being d/c on 100 mg of Cyclosporin once daily per derm. Pt has f/u with opthal. scheduled for 02/06 and Mom it to schedule derm. appt. /wed of next week. Sores/rash (hands, feet,, legs and knees) still present, but clearing up and pt. is able to eat food. Nothing applied topically. Waking up with night sweats the past 2 nights, fine during the day. Afebrile. Feeling much better.Mild cough. No abd pain. 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 Pt currently taking methylphenidate ER 18mg & 27mg daily, not including weekends-has not taken meds for ADHD in last month with other illness, but feels meds still help with focus, controls my energy . No AYALA's or any other negative side effects. Finishing up at [employer] for the year and back to [employer] in fall; Decreased appetite which is normal for pt while on this medication, weight up a little over 3 lb in 2.5 weeks. Hard to fall asleep at night (10pm), but once asleep (11-8) he is able to stay asleep. Rare Etoh an no MJA use since [facility] 02/17/2016 13:47:07 09/07/2016 text/html ADD/ ADHDReporte d bypatient.School Performance:no issue; child is learning School Support:well supported Organization:good organization skills Mood:stable Sleep:good; adequate sleep, not tired at school Appetitenormal appetite Friends:well connected with peers; healthy peer relationships Family:no new stressors Medication rebound symptoms:no rebound effects from medicationRS Sick Visit Narrative HistoryReported bypatient.Notes:Pt here for medication f/u. Currently taking Methylphenidate Er 18mg and 27mg. Per pt, medications are working well. Takes medication at 8am. Wears off around 5pm. Mainly takes medication on school days only, but will take them on weekends if pt needs to focus on something. Able to focus well in school. Is able to focus on homework at night. Finished sophomore year with 3 C's and 1 B. Side effect of decreased appetite. Sleeping well. No concerns.7lb weight loss in 5 months. Pt states he is active and trying to tone his body. Not currently trying to loose weight. Ramin Nunez MD [address] [place], [place] [address], [address], [facility] 09/07/2016 09:59:28
--- OUTSIDE RECORDS SUMMARY | 2024-05-10 12:26 | XMS_ITS | Data Portability ---
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 Plan of Treatment Reminders Order Date Submit Date Provider Last Modified By Organization Details Last Modified Time Details Appointments None recorded. Lab rapid SARS CoV 2 Ag, QL IA, respiratory specimen 2021 [place] [address], [address] [place] [address], [address], 11:50:40 rapid flu (A+B) 2021 022 [place] [address] _[facility], [address] [place] [address], [address], 11:50:40 rapid strep group A, throat 2021 [place] [address], [address] [place] [address], [address], 11:50:40 streptococc us group A, culture, throat 2021 [place] [facility] ([facility], [address] [place] [address], [place], [address], 12:06:09 Referral None recorded. Procedures None recorded. Surgeries None recorded. Imaging None recorded. Medication Orders amoxicillin 875 mg tablet 2021 022 [facility] #[id number], [address] [place], [address], 11:50:44 Lidocaine Viscous 2 % mucosal solution 2021 022 [facility][id number], [address] [place], [address], 11:50:44 Patient TargetsNo targets recorded. Patient Instructions Encounter Date Encounter Id Patient Instructions Last Modified By Organization Details Last Modified Time 03/05/2022 [id number] sore throat: car e instructions [email or web address] [id number] Not available 03/05/2022 11:50:40 Reason for Referral None Reported. Results Created Date Observation Date Name Description Value Unit Range Abnormal Flag Note LastModifiedBy Organization Detail LastModifiedTime 03/05/2003/08/2022 BETA STREP GP A CULTU RE beta strep gp A culture Commen t abnormal Beta- hemol ytic colon ies, not group A Strep tococ cus isola mary jo. Refer ence Range : Negat bernardo Penic illin and ampic illin are drugs of choic e for treat ment of beta- hemol ytic strep tococ liliya infec tions . Susce ptibi lity testi ng of penic illin s and other beta- lacta m agent s appro juliette by the FDA for treat ment of beta- hemol ytic strep tococ liliya infec tions need not be perfo rmed routi gerber becau se nonsu scept ible isola prema are extre zeenat rare in any beta- hemol ytic strep tococ cus and have not been repor mary jo for Strep tococ cus pyoge yaniv (grou p A). (CLSI ) Not Available [facility] ([facility]) [address] [facility], [place], [address], 03/08/2022 18:05:39 03/05/20 22 03/05/2022 rapid flu (A+B) Unknown Analyte Normal = Negati ve Not Available _ [facility] [address] [place] [address], [address], 03/05/2022 11:27:48 03/05/20 22 03/05/2022 rapid flu (A+B) Unknown Analyte negati ve Not Available [facility] [address] [place] [address], [address], 03/05/2022 11:27:48 03/05/20 22 03/05/2022 rapid flu (A+B) Unknown Analyte Normal = Negati ve Not Available [facility] [address] [place] [address], [address], 03/05/2022 11:27:48 03/05/20 22 03/05/2022 rapid flu (A+B) Unknown Analyte negati ve Not Available [address], [address], 03/05/2022 11:27:48 03/05/20 22 03/05/2022 rapid SARS CoV 2 Ag, QL IA, respi rator y speci men Unknown Analyte Normal =Negat bernardo Not Available [address], [address], 03/05/2022 11:27:42 03/05/20 22 03/05/2022 rapid SARS CoV 2 Ag, QL IA, respi rator y speci men Unknown Analyte negati ve Not [facility] [address] [place] [address], [address], 03/05/2022 11:27:42 03/05/20 22 03/05/2022 rapid strep group A, throa t Unknown Analyte Normal = Negati ve Not Available [facility] [address] [place] [address], [address], 03/05/2022 11:22:55 03/05/20 22 03/05/2022 rapid strep group A, throa t Unknown Analyte negati ve Not Available [address] [place], [address], 03/05/2022 11:22:55 Result Notes None recorded. Problems No Known Problems Medical Equipment None Reported. Allergies Allergen ID Allergen Name Allergen Category Reaction Reaction Severity Criticality Documentation Date Start Date Code Code System Note Provider Name and Address Organization Details Recorded Time 69671 ibuprofen medicatio n Not available Not available high 03/05/2022 5640 RxNorm Eulalio mays [facility] 2 11:25:00 67088 avocado allergeni c extract food Not available Not available Not available 03/05/2022 32827 2 RxNorm Eulalio mays PA [facility] [employer] [facility] 2 11:25:09 Medications Name Sig Start Date Stop Date Status Note LastModified by Organization Details LastModified Time Lidocaine Viscous 2 % mucosal solution Take 10 mL every 6 hours by oral route as needed for 3 days. 2021 active Not Available Not Available Not Avai lable amoxicillin 875 mg tablet Take 1 tablet every 12 hours by oral route for 10 days. 2021 active Not Available Not Available Not Avai lable cephalexin 500 mg capsule TAKE 1 CAPSULE (ORAL) 3 TIMES PER DAY FOR 5 DAYS FOR INFECTION active Not Available Not Available No t Available diclofenac sodium 75 mg tablet,delaye d release TAKE 1 TABLET BY MOUTH TWICE A DAY DIRECTED active Not Available Not Available No t Available Vitals Date Recorded Body height Body mass index (BMI) Body weight Oxygen saturation Oxygen saturation in Arterial blood by Pulse oximetry Heart rate Respiratory rate Body temperature Systolic blood pressure Diastolic blood pressure Provider Name and Address Organization Details Last Updated DateTime 2 172.72 cm 27.1 kg/m2 99885.4 4 g 96 % 96 % 88 /min 18 /min 99.2 [degF] 108 mm[Hg] 75 mm[Hg] Eulalio Villeda [employer] [facility] 2 11:24:26 Social History Question Answer Notes LastModified by Organizat ion Details LastModified Time What Is Your Level Of Alcohol Consumption? None Information not available 03/05/2022 Have You Had Direct Contact, Or Contact During Intimacy, With Monkeypox Rash, Scabs, Or Body Fluids From A Person With Monkeypox? No Information not available 03/05/2022 Do You Use Any Illicit Or Recreational Drugs? No Information not available 03/05/2022 Have You Recently Traveled Abroad? No Information not available 03/05/2022 Do You Or Have You Ever Used Any Other Forms Of Tobacco Or Nicotine? No Information not available 03/05/2022 Sex: Unknown Functional Status None recorded. Mental Status None recorded. Family History Relationship Description Onset Age of this Age Resolved Age Notes LastModified by Organization Details LastModified Time Father No current problems or disability Not available 03/05 11:26:31 Mother No current problems or disability Not available 03/05 11:26:31 Medical History No medical history recorded. Immunizations Vaccine Type Date Status Note Provider Nam e and Address Organization Details Recorded Time SARS-COV-2 (COVID-19) vaccine, UNSPECIFIED 07/10/2020 completed ADALGISA Tristan - [facility] 03/05/2022 11:26:18 Past Encounters Encounter ID Performer Location Encounter Start Date Encounter Closed Date Diagnosis/Indication Diagnosis SNOMED-CT Code Diagnosis ICD10 Code Diagnosis Note [id number] [facility] [address] 10/19/2016 09:21:19 10/19/2016 09:55:15 [id number] [facility] [address] [address] 10/02/2021 13:23:09 10/02/2021 14:31:44 [id number] [facility] [address] [address] 03/31/2021 13:35:52 03/31/2021 14:18:32 [id number] [facility] [address] 09/25/2021 14:06:03 09/25/2021 14:52:56 [id number] [facility] [address] [place] [address] 05/03/2020 15:08:57 05/03/2020 16:16:25 [id number] [place] [address] [address] 03/05/2022 10:03:15 03/05/2022 12:19:48 Exposure to SARS-CoV-2 362084165 Z20.822 Acute pharyngitis 472520 003 J02.9 Health Concerns Section Related Observation LastModified by Organization Detai ls LastModified Time None Recorded Concern Status LastModified by Organization Details LastModified Time None Recorded Advance Directives Directive None Recorded Payers Encounter Date Sequence Insurance Name Policy Number Policy Givens Covered Member ID Givens Member ID Guarantor Name 09/25/2021 1 [facility] [id number] Harley R Ceccarini [id number] Harley Ceccarini 10/02/2021 1 [facility] [id number] Harley R Ceccarini [id number] 5 Harley Ceccarini 03/05/2022 1 [facility] [id number] Harley R Ceccarini [id number] 5 Harley Ceccarini Notes Date Note Type Note Provider Name and Address Organization Details Recorded Time 2 text/html Sore throatReported bypatient.Source of patient informationInformation obtained from patient; Patient arrived at Urgent Care ambulatory Location:throat Severity:mild Quality:hurts to swallow Onset/Timin days Associated Symptoms:congestion;sinus pain/ congestion Maite Paul MD [address] [place] [address] Marlyn Gay Jennifer, [address], [place] - [facility] 03/05/2022 14:39:34
== END 2024-05-10 11:16 | disposition home or self-care (01) ==
PROVIDERS: PCP Nurse Practitioner Family; Visit Provider Nurse Practitioner Family
DX: Z00.00 Encounter for general adult medical examination without abnormal findings (principal); R74.01 Elevation of levels of liver transaminase levels; E78.2 Mixed hyperlipidemia; L84 Corns and callosities; F90.0 Attention-deficit hyperactivity disorder, predominantly inattentive type; B00.9 Herpesviral infection, unspecified; Z98.890 Other specified postprocedural states; Z87.2 Personal history of diseases of the skin and subcutaneous tissue

== ENCOUNTER → 2024-05-10 10:39 | Outpatient (BNVA) | payer BC, SELFPAY | PROVIDERS: PCP Nurse Practitioner Family; Visit Provider Nurse Practitioner Family | DX: Z00.00 Encounter for general adult medical examination without abnormal findings (principal); R74.01 Elevation of levels of liver transaminase levels; E78.2 Mixed hyperlipidemia; L84 Corns and callosities; F90.0 Attention-deficit hyperactivity disorder, predominantly inattentive type; B00.9 Herpesviral infection, unspecified; Z87.2 Personal history of diseases of the skin and subcutaneous tissue | CPT/HCPCS: 96127 ==

== ENCOUNTER 2024-05-10 11:51 | Outpatient (REF) | payer BC, SELFPAY ==
[2024-05-10 14:46] LABS: Alanine Aminotransferase 40 U/L (0-40); Albumin Level 4.9 g/dL (3.5-5.0); Alkaline Phosphatase 68 U/L (39-117); Anion Gap 12 (12-20); Aspartate Amino Transferase 31 U/L (5-37); Bilirubin Total 1.5 mg/dL (0.0-1.0); Blood Urea Nitrogen 11 mg/dL (9-16); Calcium 9.5 mg/dL (8.4-10.2); Carbon Dioxide 26 mmol/L (22-29); Chloride 106 mmol/L (96-108); Cholesterol 178 mg/dL (<200); Estimated Glomerular Filt Rate > 60; Glucose Fasting 105 mg/dL (60-99); HDL Cholesterol 49 mg/dL (>40); LDL Cholesterol Calculated 117 mg/dL (<100); Potassium 4.1 mmol/L (3.3-5.1); Sodium 140 mmol/L (135-145); Total Protein 8.4 g/dL (6.5-8.0); Triglycerides 64 mg/dL (<150)
== END 2024-05-10 11:52 | disposition home or self-care (01) ==
LOC: HO.WFDLDS 11:51
PROVIDERS: Visit Provider Nurse Practitioner Family
DX: R74.01 Elevation of levels of liver transaminase levels (principal); E78.5 Hyperlipidemia, unspecified
CPT/HCPCS: 36415; 80053; 80061